=== PATIENT | female | born 1970 | race Caucasian/White ===

== ENCOUNTER 2017-03-18 18:07 | Emergency (ER) | payer OTHER ==
[2017-03-18 18:15] VITALS: BP 153/87; PULSE 113; TEMP 100.5; BMI 37.1
--- NOTE | 2017-03-18 19:54 | PDOC ---
History of Present Illness - General History Source: Patient Exam Limitations: No Limitations - History of Present Illness Initial Comments: 03/18/17 20:12 The patient is a 46 year old female with a significant past medical history of anxiety/depression, insomnia, who presents to the ED with dysuria and fevers. Patient states the dysuria began this morning and she is experiencing generalized body aches while urinating. Patient denies hematuria, urgency, flank pain. Patient denies chills, nausea, vomiting, diarrhea. Patient states she has been under depression lately. She explains that she does not shower and change her clothes during her depressive episodes. <Jagdish Duran - Last Filed: 03/18/17 20:12> <Gavi Summers - Last Filed: 03/19/17 00:40> - General Chief Complaint: Pain Stated Complaint: PAIN Time Seen by Provider: 03/18/17 19:32 Past History <Jagdish Duran - Last Filed: 03/18/17 20:12> - Past Medical History Psychiatric Problems: Yes (ANXIETY, PANIC, DEPRESSION, INSOMNIA) Other medical history: ARTHRITIS - Suicide/Smoking/Psychosocial Hx Smoking History: Current every day smoker Number of Cigarettes Smoked Daily: 7 Information on smoking cessation initiated: Yes 'Breaking Loose' booklet given: 03/18/17 Hx Alcohol Use: Yes (SOCIAL) Drug/Substance Use Hx: No Substance Use Type: None <Gavi Summers - Last Filed: 03/19/17 00:40> - Past Medical History Allergies/Adverse Reactions: Allergies Allergy/AdvReac Type Severity Reaction Status Date / Time No Known Allergies Allergy Verified 03/18/17 18:15 Home Medications: Ambulatory Orders Aripiprazole [Abilify] 10 mg PO HS 03/18/17 Aripiprazole [Abilify] 20 mg PO DAILY 03/18/17 Clonazepam [Klonopin] 1 mg PO HS PRN 03/18/17 Ibuprofen [Motrin -] 400 mg PO QID PRN 03/18/17 Sodium Chloride [Sodium Chloride 0.9% 1000 ml Infus.bag] 1,000 ml IV ONCE #1000 infus.bag 03/18/17 Sulfamethoxazole/Trimethoprim [Bactrim Ds -] 1 tab PO BID #14 tablet 03/18/17 Venlafaxine HCl [Effexor -] 35 mg PO DAILY 03/18/17 Zolpidem Tartrate [Ambien] 10 mg PO HS 03/18/17 Review of Systems - Review of Systems Able to Perform ROS?: Yes Comments:: 03/18/17 20:13 GENERAL/CONSTITUTIONAL: + fever. + generalized body aches. No chills. No weakness. HEAD, EYES, EARS, NOSE AND THROAT: No change in vision. No ear pain or discharge. No sore throat. CARDIOVASCULAR: No chest pain or shortness of breath. RESPIRATORY: No cough, wheezing, or hemoptysis. GASTROINTESTINAL: No nausea, vomiting, diarrhea or constipation. GENITOURINARY: + dysuria. + cloudy urine. No frequency. MUSCULOSKELETAL: No joint or muscle swelling or pain. No neck or back pain. SKIN: No rash NEUROLOGIC: No headache, vertigo, loss of consciousness, or change in strength/ sensation. ENDOCRINE: No increased thirst. No abnormal weight change. HEMATOLOGIC/LYMPHATIC: No anemia, easy bleeding, or history of blood clots. ALLERGIC/IMMUNOLOGIC: No hives or skin allergy. <Jagdish Duran - Last Filed: 03/18/17 20:12> *Physical Exam - Vital Signs Last Vital Signs Temp Pulse Resp BP Pulse Ox 100.5 F H 113 H 20 153/87 99 03/18/17 18:10 03/18/17 18:10 03/18/17 18:10 03/18/17 18:10 03/18/17 19:20 - Physical Exam Comments: 03/18/17 20:14 GENERAL: Awake, alert, and fully oriented, in no acute distress HEAD: No signs of trauma EYES: PERRLA, EOMI, sclera anicteric, conjunctiva clear ENT: Auricles normal inspection, hearing grossly normal, nares patent, oropharynx clear without exudates. Moist mucosa NECK: Normal ROM, supple, no lymphadenopathy, JVD, or masses LUNGS: Breath sounds equal, clear to auscultation bilaterally. No wheezes, and no crackles HEART: Regular rate and rhythm, normal S1 and S2, no murmurs, rubs or gallops ABDOMEN: Soft, nontender, normoactive bowel sounds. No guarding, no rebound. No masses EXTREMITIES: Normal range of motion, no edema. No clubbing or cyanosis. No cords, erythema, or tenderness NEUROLOGICAL: Cranial nerves II through XII grossly intact. Normal speech, normal gait SKIN: Warm, Dry, normal turgor, no rashes or lesions noted. <Jagdish Duran - Last Filed: 03/18/17 20:12> - Vital Signs Last Vital Signs Temp Pulse Resp BP Pulse Ox 100.5 F H 113 H 20 153/87 99 03/18/17 18:10 03/18/17 18:10 03/18/17 18:10 03/18/17 18:10 03/18/17 19:20 <Gavi Summers - Last Filed: 03/19/17 00:40> ED Treatment Course - ADDITIONAL ORDERS Additional order review: Laboratory Results 03/18/17 19:50 Urine Color Yellow Urine Appearance Cloudy Urine pH 6.0 Urine Protein 2+ H Urine Glucose (UA) Negative Urine Ketones Negative Urine Blood 3+ H Urine Nitrite Negative Urine Bilirubin Negative Urine Urobilinogen Negative - Medications Given in the ED: ED Medications Discontinued Medications Generic Name Dose Route Start Last Admin Trade Name Agnes PRN Reason Stop Dose Admin Acetaminophen 1,000 mg 03/18/17 20:08 03/18/17 20:10 Tylenol - PO 03/18/17 20:09 1,000 mg ONCE ONE Administration <Jagdish Duran - Last Filed: 03/18/17 20:12> - LABORATORY CBC & Chemistry Diagram: 03/18/17 20:00 03/18/17 22:00 <Gavi Summers - Last Filed: 03/19/17 00:40> Medical Decision Making - Medical Decision Making 03/18/17 21:04 Pt comes with dysuria and fever and states that she has had poor hygeine recently as she was depressed and likely gave herself a UTI. UA is cloudy. Exam pt has minimal suprapubic pain and no flank pain. Abd nt nd; no rebound and no guarding. LMP last monnth. Pt has no other complaints,. 03/19/17 00:39 Labs normal. Pt has a UTI and a cystitis. She will be sent home with bactrim DS BID and she will be given a dose in the ER, Pt also received a dose of ceftriaxone IV in the ER. She was hydrated and she is feeling better. She will go home with family. <Gavi Summers - Last Filed: 03/19/17 00:40> *DC/Admit/Observation/Transfer - Attestations Scribe Attestion: 03/18/17 20:14 Documentation prepared by Jagdish Duran, acting as registered medical transcriptionist for Gavi Summers MD/. <Jagdish Duran - Last Filed: 03/18/17 20:12> - Discharge Dispostion Admit: No <Gavi Summers - Last Filed: 03/19/17 00:40> Diagnosis at time of Disposition: UTI (urinary tract infection), Cystitis - Discharge Dispostion Disposition: HOME Condition at time of disposition: Improved - Prescriptions Prescriptions: Sulfamethoxazole/Trimethoprim [Bactrim Ds -] 1 tab PO BID #14 tablet Sodium Chloride [Sodium Chloride 0.9% 1000 ml Infus.bag] 1,000 ml IV ONCE #1000 infus.bag - Patient Instructions Printed Discharge Instructions: DI for Acute Cystitis
[2017-03-18 20:02] LABS: URINE APPEARANCE CLOUDY; URINE BILIRUBIN NEGATIVE (NEGATIVE); URINE BLOOD 3+ (NEGATIVE); URINE COLOR YELLOW; URINE GLUCOSE (UA) NEGATIVE (NEGATIVE); URINE KETONE NEGATIVE (NEGATIVE); URINE NITRITE NEGATIVE (NEGATIVE); URINE UROBILINOGEN NEGATIVE mg/dL (0.2-1.0)
[2017-03-18 20:08] LABS: URINE LEUK ESTERASE 3+ (NEGATIVE); URINE PROTEIN 2+ (NEGATIVE)
[2017-03-18] MEDS ORDERED: ACETAMINOPHEN 500 MG TABLET (FP) PO ONE (20:08)
[2017-03-18 20:09] LABS: URINE BACTERIA RARE /hpf (NONE SEEN); URINE MUCUS RARE; URINE RBC 410 /hpf (0-3); URINE WBC 887 /hpf (3-5); YEAST MANY
[2017-03-18] MEDS ORDERED: CEFTRIAXONE 1,000 MG in DEXTROSE 5%-WATER - 50 ML IVPB ONE (20:09)
[2017-03-18] MEDS ORDERED: ACETAMINOPHEN 325 MG TABLET (FP) ONE (20:13)
[2017-03-18] MEDS ORDERED: CEFTRIAXONE 50 ML ONE (20:14)
[2017-03-18 20:35] LABS: MCH 30.3 pg (25.7-33.7); MEAN PLT VOLUME 7.2 fl (7.5-11.1); PLATELET COUNT 285 K/MM3 (134-434); RDW 14.1 % (11.6-15.6); WHITE BLOOD COUNT 20.3 K/mm3 (4.0-10.0)
[2017-03-18] MEDS ORDERED: SODIUM CHLORIDE 0.9% 500 ML INFUS.BAG IV ONE (21:07)
[2017-03-18 21:21] LABS: PLATELET COMMENT2 NO CLOTTING DETECTED; PLATELET ESTIMATE ADEQUATE (NORMAL); TOTAL CELLS COUNTED 100
[2017-03-18] MEDS ORDERED: SULFAMETHOXAZOLE/TRIMETHOPRIM 800MG/160MG D.S. TABLET PO ONE (22:16)
[2017-03-18] MEDS ORDERED: SULFAMETHOXAZOLE/TRIMETHOPRIM 800MG/160MG D.S. TABLET ONE ×2 (22:27→23:22)
[2017-03-18 22:40] LABS: ALBUMIN 3.3 g/dl (3.4-5.0); ALK PHOS 82 U/L (45-117); ANION GAP 6 (8-16); BILIRUBIN,TOTAL 0.3 mg/dL (0.2-1.0); CALCIUM 8.4 mg/dL (8.5-10.1); CO2 25 mmol/L (21-32); CREATININE 0.6 mg/dL (0.55-1.02); GLUCOSE,RANDOM 106 mg/dL (74-106); SGOT/AST 18 U/L (15-37); SGPT/ALT 26 U/L (12-78); TOT PROT 6.5 g/dl (6.4-8.2)
== END 2017-03-18 23:08 | disposition home or self-care (01) ==
LOC: JER 18:07
DX: N30.00 Acute cystitis without hematuria (principal); F41.9 Anxiety disorder, unspecified; G47.00 Insomnia, unspecified
CPT/HCPCS: 36415; 80048; 80053; 81003; 81015; 84703; 85025; 87086; 87186; 96365; 99283-25

== ENCOUNTER 2019-08-15 21:17 | Inpatient (IN) | payer OTHER ==
--- NOTE | 2019-08-15 21:30 | PDOC ---
Rapid Medical Evaluation Time Seen by Provider: 08/15/19 21:28 Medical Evaluation: Allergies Allergy/AdvReac Type Severity Reaction Status Date / Time No Known Allergies Allergy Verified 10/03/17 19:22 08/15/19 21:28 CC: right eye throbbing PE: yellow crusted discharge with sclera erythema Orders: nothing Patient will proceed to ED for continued evaluation. Discharge Disposition - Diagnosis Pain, eye, right - Referrals - Patient Instructions - Post Discharge Activity
--- NOTE | 2019-08-15 22:05 | PDOC ---
History of Present Illness - General Chief Complaint: Altered Mental Status Stated Complaint: RT EYE PAIN Time Seen by Provider: 08/15/19 21:28 - History of Present Illness Initial Comments: The pt is a 49F w/ a history of depression, bipolar disorder who presents for evaluation of right eye redness and discharge. She has had the eye redness and discharge for 2 days. She has not had this happen before. Denies vision changes , painful eye movements, JAIME, or fevers. Pt presents with her sister who expresses concern because the sister has had several days of pressured speech and erratic behavior. The pt endorses feeling confused, endorses taking her medications as prescribed , and denies SI/HI. 08/15/19 22:41 Past History - Past Medical History Allergies/Adverse Reactions: Allergies Allergy/AdvReac Type Severity Reaction Status Date / Time No Known Allergies Allergy Verified 08/15/19 21:33 Home Medications: Ambulatory Orders Aripiprazole [Abilify] 10 mg PO HS 03/18/17 Clonazepam [Klonopin] 1 mg PO HS PRN 03/18/17 COPD: No Psychiatric Problems: Yes (DEPRESSION) - Psycho Social/Smoking Cessation Hx Smoking History: Never smoked Have you smoked in the past 12 months: No Number of Cigarettes Smoked Daily: 7 If you are a former smoker, when did you quit?: 2 wks ago 'Breaking Loose' booklet given: 03/18/17 Hx Alcohol Use: No Drug/Substance Use Hx: No Substance Use Type: None Review of Systems - Review of Systems Able to Perform ROS?: Yes Comments:: GENERAL/CONSTITUTIONAL: No fever or chills. No weakness HEAD, EYES, EARS, NOSE AND THROAT: +Eye redness and discharge. No change in vision. No change in hearing. No sore throat CARDIOVASCULAR: No chest pain or shortness of breath RESPIRATORY: Denies cough, hemoptysis GASTROINTESTINAL: No nausea, vomiting, diarrhea or constipation GENITOURINARY: No dysuria, frequency, or change in urination MUSCULOSKELETAL: No joint or muscle swelling or pain. No neck or back pain SKIN: No rash NEUROLOGIC: No headache, vertigo, loss of consciousness, or change in strength/ sensation ENDOCRINE: No increased thirst. No abnormal weight change HEMATOLOGIC/LYMPHATIC: No anemia, easy bleeding, or history of blood clots ALLERGIC/IMMUNOLOGIC: No hives or skin allergy 08/15/19 22:48 Is the patient limited Pashto proficient: No *Physical Exam - Vital Signs Last Vital Signs Temp Pulse Resp BP Pulse Ox 97.9 F 114 H 18 134/93 97 08/15/19 21:28 08/15/19 21:28 08/15/19 21:28 08/15/19 21:28 08/15/19 21:28 - Physical Exam GENERAL: Awake, alert, and oriented to person/place/time, in no acute distress HEAD: No signs of trauma, normocephalic, atraumatic EYES: PERRLA, EOMI, no proptosis R conjuctivitis with purulent discharge, L eye without conjuctivitis/discharge ENT: Hearing grossly normal, nares patent, oropharynx clear without exudates. No uvular deviation. Moist mucosa LUNGS: No distress, speaks in full sentences, clear to auscultation bilaterally HEART: Regular rate and rhythm, normal S1 and S2, no murmurs appreciated, peripheral pulses normal and equal bilaterally ABDOMEN: Soft, nontender, normoactive bowel sounds. No guarding, no rebound EXTREMITIES: Normal inspection, Normal range of motion, no edema. No clubbing or cyanosis NEUROLOGICAL: Cranial nerves II through XII grossly intact. No focal sensorimotor deficits SKIN: Warm, Dry PSYCH: Pressured speech, tangential speech, flight of ideas, denies SI/HI 08/15/19 22:49 ED Treatment Course - LABORATORY CBC & Chemistry Diagram: 08/15/19 23:00 08/15/19 23:00 Medical Decision Making - Medical Decision Making The pt is a 49F w/ a history of depression, bipolar disorder who presents for evaluation of right eye redness/discharge. Pt is also with her sister who states pt is not at her baseline behavior. ED Course CMP, CBC, TSH, Trop I, UDS, UA ECG CT head Haldol 5mg IM once Ceftriaxone 1g IV once Polytrim ophthalmic solution OD once Will reassess 08/15/19 22:51 ECG w/ sinus tach; HR 111; QTc 486; no axis deviation; STD in V5-V6; no VERNON Leukocytosis noted Pt initially tachycardic Will give Azithro/Vanc Trop I neg Lytes unremarkable No MARY KATE LFTs wnl CXR w/o PNA, PNX, effusion. ED staff read Pending UA, abx Plan for admission for sepsis likely 2/2 cellulitis. Pt unable to take meds at home/lives alone. 08/16/19 01:52 CT head w/o acute pathology Pt signed out to Dr. Jakcman 08/16/19 02:00 Discharge - Discharge Information Problems reviewed: Yes Clinical Impression/Diagnosis: Pain, eye, right Condition: Good - Admission Yes - Follow up/Referral Referrals: Hammad Banks MD [Primary Care Provider] - - Patient Discharge Instructions - Post Discharge Activity
[2019-08-15] MEDS ORDERED: THIAMINE HCL 100 MG TABLET (FP) ONE (22:13)
[2019-08-15] MEDS ORDERED: FOLIC ACID 1 MG TABLET (FP) ONE (22:13)
[2019-08-15] MEDS ORDERED: HALOPERIDOL LACTATE 5 MG/ML IM ONE (22:25)
[2019-08-15] MEDS ORDERED: CEFTRIAXONE 1,000 MG in DEXTROSE 5%-WATER - 50 ML IVPB ONE (22:29)
[2019-08-15] MEDS ORDERED: CEFTRIAXONE 1 GM/50 ML BAG ONE (22:41)
[2019-08-15] MEDS ORDERED: HALOPERIDOL LACTATE 5 MG/ML ONE (22:41)
[2019-08-15] MEDS ORDERED: POLYMYXIN B SULFATE/TMP 10 ML OPHTHALMIC SOLUTION OD ONE (23:00)
[2019-08-15 23:08] LABS: BASO % 0.5 % (0-2.0); EOS % 0.8 % (0-4.5); HEMATOCRIT 41.1 % (32.4-45.2); HEMOGLOBIN 13.5 GM/dL (10.7-15.3); LYMPH % 15.3 % (8-40); MCH 28.4 pg (25.7-33.7); MCHC 32.8 g/dl (32.0-36.0); MEAN CELL VOLUME 86.7 fl (80-96); MONO % 7.8 % (3.8-10.2); NEUT % 75.6 % (42.8-82.8); PLATELET COUNT 430 K/MM3 (134-434); RBC 4.74 M/mm3 (3.60-5.2)
[2019-08-15] MEDS ORDERED: SODIUM CHLORIDE 0.9% 500 ML INFUS.BAG IV ONE (23:28)
[2019-08-15 23:41] LABS: BILIRUBIN,TOTAL 0.5 mg/dL (0.2-1); BLOOD UREA NITROGEN 11.5 mg/dL (7-18); CALCIUM 9.3 mg/dL (8.5-10.1); CREATININE 0.8 mg/dL (0.55-1.3); POTASSIUM 3.7 mmol/L (3.5-5.1); TOT PROT 7.6 g/dl (6.4-8.2)
[2019-08-16] MEDS ORDERED: AZITHROMYCIN IVPB 500 MG in DEXTROSE 5%-WATER - 250 ML IVPB ONE (01:12)
[2019-08-16] MEDS ORDERED: VANCOMYCIN 1 GM in D5W (PRE-DOCKED) 1,000 MG/250 ML IVPB ONE (01:12)
[2019-08-16] MEDS ORDERED: VANCOMYCIN 1 GRAM (PRE-DOCKED) 1,000 MG/250 ML BAG IVPB ONE (01:57)
[2019-08-16] MEDS ORDERED: AZITHROMYCIN IVPB 500 MG/250 ML BAG IVPB ONE (02:00)
--- NOTE | 2019-08-16 02:16 | PDOC ---
*Physical Exam - Vital Signs Last Vital Signs Temp Pulse Resp BP Pulse Ox 97.9 F 114 H 18 134/93 97 08/15/19 21:28 08/15/19 21:28 08/15/19 21:28 08/15/19 21:28 08/15/19 21:28 ED Treatment Course - LABORATORY CBC & Chemistry Diagram: 08/15/19 23:00 08/15/19 23:00 - ADDITIONAL ORDERS Additional order review: Laboratory Results 08/15/19 08/15/19 08/15/19 23:00 23:00 23:00 Sodium 138 Potassium 3.7 Chloride 105 Carbon Dioxide 28 Anion Gap 5 L BUN 11.5 Creatinine 0.8 Est GFR (CKD-EPI)AfAm 98.93 Est GFR (CKD-EPI)NonAf 85.36 Random Glucose 115 H Calcium 9.3 Total Bilirubin 0.5 AST 24 ALT 29 Alkaline Phosphatase 92 Troponin I < 0.02 Total Protein 7.6 Albumin 4.0 TSH 1.47 Cancelled 08/15/19 23:00 RBC 4.74 MCV 86.7 MCHC 32.8 RDW 15.0 MPV 7.0 L Neutrophils % 75.6 Lymphocytes % 15.3 D Monocytes % 7.8 Eosinophils % 0.8 Basophils % 0.5 - Medications Given in the ED: ED Medications Discontinued Medications Generic Name Dose Route Start Last Admin Trade Name Agnes PRN Reason Stop Dose Admin Haloperidol 5 mg 08/15/19 22:25 08/15/19 23:02 Haldol Injection (Fast Acting) - IM 08/15/19 22:26 5 mg ONCE ONE Administration Ceftriaxone Sodium 1,000 mg/ 50 mls @ 100 mls/hr 08/15/19 22:29 08/15/19 23: 02 Dextrose IVPB 08/15/19 22:58 100 mls/hr ONCE ONE Administration Polymyxin/Trimethoprim Sulfate 1 drop 08/15/19 23:00 08/15/19 23:21 Polytrim Opthalmic Solution - OD 08/15/19 23:01 1 drop ONCE ONE Administration Sodium Chloride 1,000 ml 08/15/19 23:28 08/15/19 23:51 Normal Saline - IV 08/15/19 23:29 1,000 ml ONCE ONE Administration Medical Decision Making - Medical Decision Making 08/16/19 02:15 ECG w/ sinus tach; HR 111; QTc 486; no axis deviation; STD in V5-V6; no VERNON CXR w/o PNA, PNX, effusion WBC 16 --- Signed out from day team The pt is a 49F w/ a history of depression, bipolar disorder who presents for evaluation of 2d right eye redness/discharge, pressured speech, erratic behavior No acute bleed/infarct on head CT. Normal TSH, glucose Given 5 haldol, 1g rocephin, Polytrim ophthalmic solution OD, thiamine, vanc, zosyn Admitted m/s Dr Nguyen for encephalopathy vs manic episode 2/2 R bacterial conjunctivitis, R preseptal cellulitis Discharge - Discharge Information Problems reviewed: Yes Clinical Impression/Diagnosis: Conjunctivitis Qualifiers: Conjunctivitis type: acute Acute conjunctivitis type: bacterial Laterality: right Qualified Code(s): H10.31 - Unspecified acute conjunctivitis, right eye Cellulitis Qualifiers: Site of cellulitis: face Qualified Code(s): L03.211 - Cellulitis of face Altered mental state Qualifiers: Altered mental status type: delirium Qualified Code(s): R41.0 - Disorientation , unspecified Condition: Improved - Follow up/Referral Referrals: Hammad Banks MD [Primary Care Provider] - - Patient Discharge Instructions - Post Discharge Activity
[2019-08-16 02:23] LABS: VENOUS PC02 52.3 mmHg (38-52); VENOUS PH 7.37 (7.31-7.41); VENOUS PO2 < 49 mmHg (28-48)
[2019-08-16 05:10] LABS: PH,URINE 6.5 (5.0-8.0); URINE APPEARANCE CLOUDY; URINE BILIRUBIN NEGATIVE (NEGATIVE); URINE COLOR YELLOW; URINE GLUCOSE (UA) NEGATIVE (NEGATIVE); URINE KETONE NEGATIVE (NEGATIVE); URINE LEUK ESTERASE NEGATIVE (NEGATIVE); URINE NITRITE NEGATIVE (NEGATIVE); URINE PROTEIN NEGATIVE (NEGATIVE)
--- NOTE | 2019-08-16 05:26 | HP ---
CHIEF COMPLAINT: right eye infection PCP: Dr. Banks Psychiatry: Dr. Edward Mcclellan HISTORY OF PRESENT ILLNESS: Patient is a 49 year old female with history of depression, anxiety presents with complaint of right eye pain. Symptoms ongoing for the past two days without clear inciting event. Admits eye erythema and swelling with throbbing pain. Denies visual changes, or pain with extraoccular movements. Denies trauma , sick contacts. Denies prior occurrence of similar symptoms. Patient has not taken any antibiotics recently. Per ED notation, patient was tangential, with flight of ideas. Reported that patient's sister concerned for 'erratic behavior'. Numerous attempts to contact sister (Kellee Hernandez [phone])) however unsuccessful. Upon my encounter, patient is calm, resting comfortably. Denies suicidal or homicidal ideation. Admits compliance with her psychiatric medications. ER course was notable for: (1) CT head (2) Polymyxin Drops, Vancomycin, Ceftriaxone, Azithromycin (3) Recent Travel: denies PAST MEDICAL HISTORY: anxiety, depression PAST SURGICAL HISTORY: cosmetic nose surgery 20 years ago Family History: -Mother: CVA, hypertension, hyperlipidemia -Father: asthma Social History: Lives alone in apartment. Currently on disability due to her psychiatric history. Patient ambulates without cane or walker. Smoking: Admits 1 pack per day for past 30 years. Currently down to 5-6 cigarettes/ day Alcohol: Admits 1-2 glasses of wine on social occasion. Denies any alcohol since this past summer. Drugs: Denies illicit drug use. Allergies No Known Allergies Allergy (Verified 08/15/19 21:33) HOME MEDICATIONS: Home Medications Medication Instructions Recorded Aripiprazole [Abilify] 10 mg PO HS 03/18/17 Clonazepam [Klonopin] 1 mg PO HS PRN 03/18/17 REVIEW OF SYSTEMS CONSTITUTIONAL: Absent: fever, chills, diaphoresis, generalized weakness, malaise, loss of appetite, weight change HEENT: Admits: eye redness, swelling, purulent drainage. Absent: rhinorrhea, nasal congestion, throat pain, throat swelling, difficulty swallowing, mouth swelling , ear pain, visual changes CARDIOVASCULAR: Absent: chest pain, syncope, palpitations, irregular heart rate, lightheadedness , peripheral edema RESPIRATORY: Absent: cough, shortness of breath, dyspnea with exertion, orthopnea, wheezing, stridor, hemoptysis GASTROINTESTINAL: Absent: abdominal pain, abdominal distension, nausea, vomiting, diarrhea, constipation, melena, hematochezia GENITOURINARY: Absent: dysuria, frequency, urgency, hesitancy, hematuria, flank pain, genital pain MUSCULOSKELETAL: Absent: myalgia, arthralgia, joint swelling, back pain, neck pain SKIN: Absent: rash, itching, pallor HEMATOLOGIC/IMMUNOLOGIC: Absent: easy bleeding, easy bruising, lymphadenopathy, frequent infections ENDOCRINE: Absent: unexplained weight gain, unexplained weight loss, heat intolerance, cold intolerance NEUROLOGIC: Absent: headache, focal weakness or paresthesias, dizziness, unsteady gait, seizure, mental status changes, bladder or bowel incontinence PSYCHIATRIC: Absent: anxiety, depression, suicidal or homicidal ideation, hallucinations. PHYSICAL EXAMINATION Vital Signs - 24 hr 08/15/19 21:28 Temperature 97.9 F Pulse Rate 114 H Respiratory 18 Rate Blood Pressure 134/93 O2 Sat by Pulse 97 Oximetry (%) GENERAL: Disheveled. The patient is awake, alert, and fully oriented, in no acute distress. HEAD: Normocephalic, atraumatic. EYES: Right eye conjunctiva injected, with purulent discharge. Extraocular movements intact bilaterally without orbital pain. PERRL (right eye slightly more sluggish than left). ENT: Oropharynx clear, without erythema or exudates. Moist mucous membranes. NECK: Trachea midline, full range of motion. Supple without lymphadenopathy. LUNGS: Breath sounds equal, clear to auscultation bilaterally. No wheezes, no crackles. No accessory muscle use. HEART: Regular rate and rhythm. S1, S2 without murmur, rub or gallop. ABDOMEN: Soft, nondistended, nontender to light and deep palpation x4 quadrants. No rebound tenderness, no guarding. Normoactive bowel sounds x4 quadrants. No hepatosplenomegaly, no masses appreciated. EXTREMITIES: 2+ radial, dorsalis pedis pulses bilaterally. Warm, well-perfused. No lower extremity edema bilaterally. NEUROLOGICAL: Cranial nerves II through XII grossly intact. Normal speech. Strength 5/5 bilateral upper and lower extremities. No gross focal deficits. PSYCH: Appropriate affect upon my encounter. SKIN: Dirty lower extremities bilaterally with dirt between nails bilaterally. Laboratory Results - last 24 hr 08/15/19 08/15/19 08/15/19 23:00 23:00 23:00 WBC 16.0 H RBC 4.74 Hgb 13.5 Hct 41.1 MCV 86.7 MCH 28.4 MCHC 32.8 RDW 15.0 Plt Count 430 D MPV 7.0 L Absolute Neuts (auto) 12.1 H Neutrophils % 75.6 Lymphocytes % 15.3 D Monocytes % 7.8 Eosinophils % 0.8 Basophils % 0.5 Nucleated RBC % 0 VBG pH POC VBG pCO2 POC VBG pO2 VBG HCO3 VBG O2 Sat (Maurizio) VBG Base Excess Sodium 138 Potassium 3.7 Chloride 105 Carbon Dioxide 28 Anion Gap 5 L BUN 11.5 Creatinine 0.8 Est GFR (CKD-EPI)AfAm 98.93 Est GFR (CKD-EPI)NonAf 85.36 Random Glucose 115 H Lactic Acid Calcium 9.3 Total Bilirubin 0.5 AST 24 ALT 29 Alkaline Phosphatase 92 Troponin I Total Protein 7.6 Albumin 4.0 TSH Cancelled Urine Color Urine Appearance Urine pH Ur Specific Harrison Urine Protein Urine Glucose (UA) Urine Ketones Urine Blood Urine Nitrite Urine Bilirubin Urine Urobilinogen Ur Leukocyte Esterase Digoxin 08/15/19 08/16/19 08/16/19 23:00 01:43 01:43 WBC RBC Hgb Hct MCV MCH MCHC RDW Plt Count MPV Absolute Neuts (auto) Neutrophils % Lymphocytes % Monocytes % Eosinophils % Basophils % Nucleated RBC % VBG pH POC VBG pCO2 POC VBG pO2 VBG HCO3 VBG O2 Sat (Maurizio) VBG Base Excess Sodium Potassium Chloride Carbon Dioxide Anion Gap BUN Creatinine Est GFR (CKD-EPI)AfAm Est GFR (CKD-EPI)NonAf Random Glucose Lactic Acid 0.9 Calcium Total Bilirubin AST ALT Alkaline Phosphatase Troponin I < 0.02 Total Protein Albumin TSH 1.47 Urine Color Urine Appearance Urine pH Ur Specific Harrison Urine Protein Urine Glucose (UA) Urine Ketones Urine Blood Urine Nitrite Urine Bilirubin Urine Urobilinogen Ur Leukocyte Esterase Digoxin < 0.3 L 08/16/19 08/16/19 01:43 04:15 WBC RBC Hgb Hct MCV MCH MCHC RDW Plt Count MPV Absolute Neuts (auto) Neutrophils % Lymphocytes % Monocytes % Eosinophils % Basophils % Nucleated RBC % VBG pH 7.37 POC VBG pCO2 52.3 H POC VBG pO2 < 49 H VBG HCO3 29.2 H VBG O2 Sat (Maurizio) 33.6 L VBG Base Excess 3.3 H Sodium Potassium Chloride Carbon Dioxide Anion Gap BUN Creatinine Est GFR (CKD-EPI)AfAm Est GFR (CKD-EPI)NonAf Random Glucose Lactic Acid Calcium Total Bilirubin AST ALT Alkaline Phosphatase Troponin I Total Protein Albumin TSH Urine Color Yellow Urine Appearance Cloudy Urine pH 6.5 Ur Specific Harrison 1.009 L Urine Protein Negative Urine Glucose (UA) Negative Urine Ketones Negative Urine Blood Negative Urine Nitrite Negative Urine Bilirubin Negative Urine Urobilinogen 1.0 Ur Leukocyte Esterase Negative Digoxin ASSESSMENT/PLAN: Patient is a 49 year old female with history of depression, anxiety presents with complaint of right eye pain. Sepsis secondary to conjunctivitis of right eye, cellulitis of eyelid -WBC 16, tachycardic to 114BPM. Afebrile. Lactic acid 0.9 -Follow CT head official reading. Preliminary reading negative for acute pathology. -Polymyxin eye drops -Unasyn 3 grams IV Q6 hours -Follow blood cultures, urine cultures. UA not suggestive of UTI Acute metabolic encephalopathy -May be in setting of sepsis vs. manic episode. Urine toxicology positive for amphetamines. However iSTOP reveals patient has been prescribed Desxtromethorphan- Amphetamine by her psychiatrist Dr. Edward Campbell, in addition to Clonazepam 0.5mg tablets prescribed by Dr Mahmood. Amphetamines likely contributing factor to change in mental status; will need to clarify the medication with her psychiatrist. Will hold amphetamines for now. -Continue Effexor 75mg PO BID (reconciled from prior DC summary; currently her pharmacy is closed) -Psychiatry consult (Dr. Chu) -Fall precations, seizure precautions -Follow RPR -Social work consult FEN -No IV fluids indicated; encourage judicious oral hydration -Follow BMP -Regular diet Prophylaxis -Lovenox 40mg subq daily Disposition -Admit to medical surgical floor Visit type - Emergency Visit Emergency Visit: Yes ED Registration Date: 08/16/19 Care time: The patient presented to the Emergency Department on the above date and was hospitalized for further evaluation of their emergent condition. - New Patient This patient is new to me today: Yes Date on this admission: 08/16/19 - Critical Care Critical Care patient: No ATTENDING PHYSICIAN STATEMENT I saw and evaluated the patient. I reviewed the resident's note and discussed the case with the resident. I agree with the resident's findings and plan as documented. SUBJECTIVE: OBJECTIVE: ASSESSMENT AND PLAN:
[2019-08-16 05:44] LABS: COCAINE, UR NEGATIVE ng/ml (CUTOFF=300); METHADONE, UR NEGATIVE ng/ml (CUTOFF=300); OPIATES, URI NEGATIVE ng/ml (CUTOFF=300); PHENCYCLIDINE,URINE NEGATIVE ng/ml (CUTOFF=25); URINE BARBITURATES NEGATIVE ng/ml (CUTOFF=200)
[2019-08-16 05:46] LABS: URINE AMPHETAMINES POSITIVE ng/ml (CUTOFF=500)
[2019-08-16 05:47] LABS: URINE BENZODIAZEPINES POSITIVE ng/ml (CUTOFF=200)
--- NOTE | 2019-08-16 06:16 | PN ---
Teaching Attending Note Name of Resident: Jose Raul Mohamud ATTENDING PHYSICIAN STATEMENT I saw and evaluated the patient. I reviewed the resident's note and discussed the case with the resident. I agree with the resident's findings and plan as documented. SUBJECTIVE: 49-year-old woman with history of depression, bipolar disorder, insomnia, anxiety initially presenting with altered mental status, erratic behavior, right eye discharge and right eyelid swelling. Noted to be receiving dextroamphetamine from her psychiatristDrCristopher Mcclellan as per I stop. She was also noted to be on clonazepam as per her old medication list. Eye swelling started about 2 days ago, noted to have some discharge with decreased visual acuity reported. OBJECTIVE: Last Vital Signs Temp Pulse Resp BP Pulse Ox 97.9 F 114 H 18 134/93 97 08/15/19 21:28 08/15/19 21:28 08/15/19 21:28 08/15/19 21:28 08/15/19 21:28 Physical exam showed disheveled woman in no acute distress, right eyelid erythematous, swollen conjunctival w/ discharge. PERRLA bilaterally no signs of trauma to head. Lungs clear to auscultation bilaterally, normal heart exam, abdomen soft, nontender skin with no rashes Abnormal Lab Results 08/15/19 08/15/19 08/16/19 23:00 23:00 01:43 WBC 16.0 H MPV 7.0 L Absolute Neuts (auto) 12.1 H POC VBG pCO2 POC VBG pO2 VBG HCO3 VBG O2 Sat (Maurizio) VBG Base Excess Anion Gap 5 L Random Glucose 115 H Ur Specific [place] Digoxin < 0.3 L Ur Amphetamines Screen Benzodiazepines Screen 08/16/19 08/16/19 08/16/19 01:43 04:15 04:15 WBC MPV Absolute Neuts (auto) POC VBG pCO2 52.3 H POC VBG pO2 < 49 H VBG HCO3 29.2 H VBG O2 Sat (Maurizio) 33.6 L VBG Base Excess 3.3 H Anion Gap Random Glucose Ur Specific [place] 1.009 L Digoxin Ur Amphetamines Screen Positive A* Benzodiazepines Screen Positive A* Imaging studies reviewed ASSESSMENT AND PLAN: 49-year-old woman with sepsis possibly secondary to right bacterial conjunctivitis and periorbital cellulitis Blood cultures x2 Polymyxin eyedrops to right eye Unasyn 3 g IV every 6 hours #Psychiatric disorderunderlying bipolar disorder, depression was suspected to have manic episode in the emergency room may be bipolar disorder and exacerbated by amphetamine use Would cease psychotropic medications at this time Psychiatry evaluation Must confirm most up-to-date medications with pharmacy in the morning DVT prophylaxis with heparin subcutaneously
--- NOTE | 2019-08-16 11:02 | EKG ---
Test Reason : Blood Pressure : / mmHG Vent. Rate : 111 BPM Atrial Rate : 111 BPM P-R Int : 132 ms QRS Dur : 078 ms QT Int : 358 ms P-R-T Axes : 047 053 -28 degrees QTc Int : 486 ms SINUS TACHYCARDIA POSSIBLE LEFT ATRIAL ENLARGEMENT LEFT VENTRICULAR HYPERTROPHY WITH REPOLARIZATION ABNORMALITY ABNORMAL ECG Confirmed by JIGAR COHEN MD ([id number]) on 08/16/2019 11:02:32 AM Referred By: Confirmed By:JIGAR COHEN MD
[2019-08-16] MEDS: POLYMYXIN B SULFATE/TMP 10 ML OPHTHALMIC SOLUTION OD SCH ×5 (11:35→21:54)
[2019-08-16] MEDS ORDERED: MAGNESIUM SULF 50% (8.12 MEQ/2 ML-1 GM VIAL) IVPB ONE (12:18)
[2019-08-16] MEDS: VENLAFAXINE HCL 75 MG TABLET PO SCH ×2 (12:30→21:54)
[2019-08-16] MEDS: ENOXAPARIN NA (PORCINE) 40 MG/0.4 ML DISP.SYRIN SQ SCH (12:30)
[2019-08-16] MEDS ORDERED: SODIUM CHLORIDE 0.9% 500 ML INFUS.BAG IV ONE (13:21)
[2019-08-16 13:45] LABS: HEMATOCRIT 37.4 % (32.4-45.2); HEMOGLOBIN 12.5 GM/dL (10.7-15.3); MCH 28.9 pg (25.7-33.7); MCHC 33.5 g/dl (32.0-36.0); MEAN CELL VOLUME 86.3 fl (80-96); MEAN PLT VOLUME 6.7 fl (7.5-11.1); PLATELET COUNT 398 K/MM3 (134-434); RBC 4.34 M/mm3 (3.60-5.2); RDW 15.2 % (11.6-15.6); WHITE BLOOD COUNT 13.3 K/mm3 (4.0-10.0)
[2019-08-16 14:19] LABS: ALBUMIN 3.4 g/dl (3.4-5.0); BILIRUBIN,TOTAL 0.3 mg/dL (0.2-1); BLOOD UREA NITROGEN 7.6 mg/dL (7-18); CALCIUM 8.9 mg/dL (8.5-10.1); CREATININE 0.6 mg/dL (0.55-1.3); PHOSPHOROUS 2.9 mg/dL (2.5-4.9); POTASSIUM 3.3 mmol/L (3.5-5.1); TOT PROT 6.3 g/dl (6.4-8.2)
[2019-08-16] MEDS: AMPICILLIN NA/SULBACTAM NA 3 GM in SODIUM CHLORIDE 100 ML IVPB SCH ×3 (15:06→21:52)
--- NOTE | 2019-08-16 16:48 | PDOC ---
Documentation entered by Jere Tam SCRIBE, acting as scribe for Erasmo Shankar DO. Erasmo Shankar DO: This documentation has been prepared by the Yonatan hardin Daniel, SCRIBE, under my direction and personally reviewed by me in its entirety. I confirm that the documentation accurately reflects all work, treatment, procedures, and medical decision making performed by me. Attending Attestation - Resident Resident Name: JeffLm - ED Attending Attestation I have performed the following: I have examined & evaluated the patient, The case was reviewed & discussed with the resident, I agree w/resident's findings & plan, Exceptions are as noted - HPI HPI: 08/16/19 00:08 The patient is a 49 year old female with a past medical history of bipolar disorder who presents today with altered mental status and right eye discharge. The patients sister reports that the patient has had right eye crusting and redness for the past few days. 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 Sister is concerned that something is wrong. The patient denies any fever, chills, chest pain, shortness of breath, suicidal ideation, or homicidal ideation. - Physicial Exam PE: 08/16/19 00:08 GENERAL: Awake, alert, and fully oriented, in no acute distress HEAD: No signs of trauma EYES: +right eye bacterial conjunctivitis. Right eye is non proptotic. No pain with extra ocular motion. PERRLA, EOMI, sclera anicteric ENT: Auricles normal inspection, hearing grossly normal, nares patent, oropharynx clear without exudates. Moist mucosa NECK: Normal ROM, supple, no lymphadenopathy, JVD, or masses LUNGS: Breath sounds equal, clear to auscultation bilaterally. No wheezes, and no crackles HEART: Regular rate and rhythm, normal S1 and S2, no murmurs, rubs or gallops ABDOMEN: Soft, nontender, normoactive bowel sounds. No guarding, no rebound. No masses EXTREMITIES: Normal range of motion, no edema. No clubbing or cyanosis. No cords, erythema, or tenderness NEUROLOGICAL: ANOx4. Cranial nerves II through XII grossly intact. Moving all extremities. No facial asymmetry. Normal speech, normal gait PSYCHIATRIC: +pressured speech. +tangentiality. +mild disorganization. SKIN: Warm, Dry, normal turgor, no rashes or lesions noted. - Medical Decision Making 08/16/19 00:09 The patient is a 49 year old female who currently is having a mild manic episode and bacterial conjunctivitis. Afebrile and tachycardic upon arrival. Will evaluate for systemic infection, will give haldol for ti and reassess after haldol is given. Will chemical dependency counselor the patient and reaffirm her safety. Will obtain CT head, UA, and cardiac enzymes. White count of 16, exacerbation of chronic mental illness most likely due to infection. Will cover with broad spectrum antibiotics and admit for failure to thrive and sepsis. EKG Sinus tachycardia 111, normal axis and intervals LVH questionable ST depressions in V4-V6. questionable dig effect Drug screen shows urine amphetamines/benzos, likely w/ drug induced psychosis and sepsis secondary to bacterial conjunctavitis, admitted for ivf / abx and placement as pt cannot take care of herself and is an unsafe discharge. 212508/21/19 18:14
--- NOTE | 2019-08-16 19:35 | PN ---
Physical Exam: SUBJECTIVE: Patient seen and examined, feels comfortable, R eye pain markedly improved, speaking in full sentences, making sense, endorsed "her sister was freaking out because of her eye" which made her anxious, now resolved, denies SI /HI/AH/VH/anxiety/depression currently. VSS. OBJECTIVE: Vital Signs Period Temp Pulse Resp BP Sys/Ureña Pulse Ox Last 24 Hr 97.8 F-98 F 76-114 18-20 134-155/58-93 97-99 GENERAL: The patient is awake, alert, and fully oriented, in no acute distress. Answering to questions. HEAD: Normal with no signs of trauma. EYES: PERRL, extraocular movements intact, R conjunctival injection, R periorbital swelling, L eye unremarkable ENT: Ears normal, nares patent, oropharynx clear without exudates, moist mucous membranes. NECK: Trachea midline, full range of motion, supple. LUNGS: Breath sounds equal, clear to auscultation bilaterally, no wheezes, no crackles, no accessory muscle use. HEART: Regular rate and rhythm, S1, S2 without murmur, rub or gallop. ABDOMEN: Soft, nontender, nondistended, normoactive bowel sounds, no guarding, no rebound, no hepatosplenomegaly, no masses. EXTREMITIES: 2+ pulses, warm, well-perfused, no edema. NEUROLOGICAL: Cranial nerves II through XII grossly intact. Normal speech, gait not observed. PSYCH: Normal mood, normal affect. Answering to questions. SKIN: Warm, dry, normal turgor, no rashes or lesions noted Laboratory Results - last 24 hr 08/15/19 08/15/19 08/15/19 23:00 23:00 23:00 WBC 16.0 H RBC 4.74 Hgb 13.5 Hct 41.1 MCV 86.7 MCH 28.4 MCHC 32.8 RDW 15.0 Plt Count 430 D MPV 7.0 L Absolute Neuts (auto) 12.1 H Neutrophils % 75.6 Lymphocytes % 15.3 D Monocytes % 7.8 Eosinophils % 0.8 Basophils % 0.5 Nucleated RBC % 0 VBG pH POC VBG pCO2 POC VBG pO2 VBG HCO3 VBG O2 Sat (Maurizio) VBG Base Excess Sodium 138 Potassium 3.7 Chloride 105 Carbon Dioxide 28 Anion Gap 5 L BUN 11.5 Creatinine 0.8 Est GFR (CKD-EPI)AfAm 98.93 Est GFR (CKD-EPI)NonAf 85.36 Random Glucose 115 H Hemoglobin A1c % Lactic Acid Calcium 9.3 Phosphorus Magnesium Total Bilirubin 0.5 AST 24 ALT 29 Alkaline Phosphatase 92 Troponin I Total Protein 7.6 Albumin 4.0 TSH Cancelled Urine Color Urine Appearance Urine pH Ur Specific [place] Urine Protein Urine Glucose (UA) Urine Ketones Urine Blood Urine Nitrite Urine Bilirubin Urine Urobilinogen Ur Leukocyte Esterase Digoxin Opiates Screen Methadone Screen Barbiturate Screen Phencyclidine Screen Ur Amphetamines Screen MDMA (Ecstasy) Screen Benzodiazepines Screen Cocaine Screen U Marijuana (THC) Screen RPR Titer 08/15/19 08/16/19 08/16/19 23:00 01:43 01:43 WBC RBC Hgb Hct MCV MCH MCHC RDW Plt Count MPV Absolute Neuts (auto) Neutrophils % Lymphocytes % Monocytes % Eosinophils % Basophils % Nucleated RBC % VBG pH POC VBG pCO2 POC VBG pO2 VBG HCO3 VBG O2 Sat (Maurizio) VBG Base Excess Sodium Potassium Chloride Carbon Dioxide Anion Gap BUN Creatinine Est GFR (CKD-EPI)AfAm Est GFR (CKD-EPI)NonAf Random Glucose Hemoglobin A1c % Lactic Acid 0.9 Calcium Phosphorus Magnesium Total Bilirubin AST ALT Alkaline Phosphatase Troponin I < 0.02 Total Protein Albumin TSH 1.47 Urine Color Urine Appearance Urine pH Ur Specific [place] Urine Protein Urine Glucose (UA) Urine Ketones Urine Blood Urine Nitrite Urine Bilirubin Urine Urobilinogen Ur Leukocyte Esterase Digoxin < 0.3 L Opiates Screen Methadone Screen Barbiturate Screen Phencyclidine Screen Ur Amphetamines Screen MDMA (Ecstasy) Screen Benzodiazepines Screen Cocaine Screen U Marijuana (THC) Screen RPR Titer 08/16/19 08/16/19 08/16/19 01:43 04:15 04:15 WBC RBC Hgb Hct MCV MCH MCHC RDW Plt Count MPV Absolute Neuts (auto) Neutrophils % Lymphocytes % Monocytes % Eosinophils % Basophils % Nucleated RBC % VBG pH 7.37 POC VBG pCO2 52.3 H POC VBG pO2 < 49 H VBG HCO3 29.2 H VBG O2 Sat (Maurizio) 33.6 L VBG Base Excess 3.3 H Sodium Potassium Chloride Carbon Dioxide Anion Gap BUN Creatinine Est GFR (CKD-EPI)AfAm Est GFR (CKD-EPI)NonAf Random Glucose Hemoglobin A1c % Lactic Acid Calcium Phosphorus Magnesium Total Bilirubin AST ALT Alkaline Phosphatase Troponin I Total Protein Albumin TSH Urine Color Yellow Urine Appearance Cloudy Urine pH 6.5 Ur Specific [place] 1.009 L Urine Protein Negative Urine Glucose (UA) Negative Urine Ketones Negative Urine Blood Negative Urine Nitrite Negative Urine Bilirubin Negative Urine Urobilinogen 1.0 Ur Leukocyte Esterase Negative Digoxin Opiates Screen Negative Methadone Screen Negative Barbiturate Screen Negative Phencyclidine Screen Negative Ur Amphetamines Screen Positive A* MDMA (Ecstasy) Screen Negative Benzodiazepines Screen Positive A* Cocaine Screen Negative U Marijuana (THC) Screen Negative RPR Titer 08/16/19 08/16/19 08/16/19 13:28 13:28 13:28 WBC 13.3 H RBC 4.34 Hgb 12.5 Hct 37.4 MCV 86.3 MCH 28.9 MCHC 33.5 RDW 15.2 Plt Count 398 MPV 6.7 L Absolute Neuts (auto) Neutrophils % Lymphocytes % Monocytes % Eosinophils % Basophils % Nucleated RBC % VBG pH POC VBG pCO2 POC VBG pO2 VBG HCO3 VBG O2 Sat (Maurizio) VBG Base Excess Sodium 139 Potassium 3.3 L Chloride 107 Carbon Dioxide 28 Anion Gap 5 L BUN 7.6 Creatinine 0.6 Est GFR (CKD-EPI)AfAm 122.32 Est GFR (CKD-EPI)NonAf 105.54 Random Glucose 91 Hemoglobin A1c % 5.6 Lactic Acid Calcium 8.9 Phosphorus 2.9 Magnesium 2.0 Total Bilirubin 0.3 AST 22 ALT 29 Alkaline Phosphatase 81 Troponin I Total Protein 6.3 L Albumin 3.4 TSH 1.00 Urine Color Urine Appearance Urine pH Ur Specific [place] Urine Protein Urine Glucose (UA) Urine Ketones Urine Blood Urine Nitrite Urine Bilirubin Urine Urobilinogen Ur Leukocyte Esterase Digoxin Opiates Screen Methadone Screen Barbiturate Screen Phencyclidine Screen Ur Amphetamines Screen MDMA (Ecstasy) Screen Benzodiazepines Screen Cocaine Screen U Marijuana (THC) Screen RPR Titer 08/16/19 13:28 WBC RBC Hgb Hct MCV MCH MCHC RDW Plt Count MPV Absolute Neuts (auto) Neutrophils % Lymphocytes % Monocytes % Eosinophils % Basophils % Nucleated RBC % VBG pH POC VBG pCO2 POC VBG pO2 VBG HCO3 VBG O2 Sat (Maurizio) VBG Base Excess Sodium Potassium Chloride Carbon Dioxide Anion Gap BUN Creatinine Est GFR (CKD-EPI)AfAm Est GFR (CKD-EPI)NonAf Random Glucose Hemoglobin A1c % Lactic Acid Calcium Phosphorus Magnesium Total Bilirubin AST ALT Alkaline Phosphatase Troponin I Total Protein Albumin TSH Urine Color Urine Appearance Urine pH Ur Specific [place] Urine Protein Urine Glucose (UA) Urine Ketones Urine Blood Urine Nitrite Urine Bilirubin Urine Urobilinogen Ur Leukocyte Esterase Digoxin Opiates Screen Methadone Screen Barbiturate Screen Phencyclidine Screen Ur Amphetamines Screen MDMA (Ecstasy) Screen Benzodiazepines Screen Cocaine Screen U Marijuana (THC) Screen RPR Titer Nonreactive Active Medications Generic Name Dose Route Start Last Admin Trade Name Ulyssesq PRN Reason Stop Dose Admin Enoxaparin Sodium 40 mg 08/16/19 10:00 08/16/19 12:30 Lovenox - SQ 40 mg DAILY FERNANDEZ Administration Ampicillin Sodium/Sulbactam 100 mls @ 200 mls/hr 08/16/19 09:00 08/16/19 15: 07 Sodium 3 gm/ Sodium Chloride IVPB 200 mls/hr Q6H-IV FERNANDEZ Administration Polymyxin/Trimethoprim Sulfate 1 drop 08/16/19 06:32 08/16/19 18:05 Polytrim Opthalmic Solution - OD 1 drp Q4HWA FERNANDEZ Administration Venlafaxine HCl 75 mg 08/16/19 10:00 08/16/19 12:30 Effexor - PO 75 mg BID FERNANDEZ Administration ASSESSMENT/PLAN: 49 F h/o depression, anxiety presents with R eye conjunctivitis without loss of visual acuity. Sepsis secondary to conjunctivitis of right eye, cellulitis of eyelid Cont. Unasyn, polymyxin eye drops, warm compresses PRN, pain control Follow blood cultures, urine cultures. UA not suggestive of UTI, IVF Acute metabolic encephalopathy v.s. ?panic attack resolved, endorses her sister made her anxious by "freaking out" about her eye takes Adderall for ADHD, now off of it, ?rebound anxiety from stopping it Cont. Effexor 75mg BID, psych consult Prophylaxis Lovenox SC Med Surg 24 hour DC notice Visit type - Emergency Visit Emergency Visit: Yes ED Registration Date: 08/16/19 Care time: The patient presented to the Emergency Department on the above date and was hospitalized for further evaluation of their emergent condition. - New Patient This patient is new to me today: Yes Date on this admission: 08/16/19 - Critical Care Critical Care patient: No - Discharge Referral Referred to [facility] Med P.C.: No
[2019-08-16] MEDS ORDERED: VENLAFAXINE HCL 75 MG TABLET ONE (20:25)
[2019-08-16] MEDS ORDERED: BACITRACIN/POLYMYXIN OPH OINT 3.5 GM TUBE OD ONE (22:26)
[2019-08-17 02:28] VITALS: BMI 33.0
[2019-08-17] MEDS ORDERED: PNEUMOC 13-VAL CONJ-DIP CRM/PF 0.5 ML DISP.SYRIN IM ONE (02:28)
[2019-08-17] MEDS: AMPICILLIN NA/SULBACTAM NA 3 GM in SODIUM CHLORIDE 100 ML IVPB SCH ×2 (03:21→11:20)
[2019-08-17] MEDS: POLYMYXIN B SULFATE/TMP 10 ML OPHTHALMIC SOLUTION OD SCH ×5 (07:00→21:59)
[2019-08-17 08:48] LABS: HEMATOCRIT 34.7 % (32.4-45.2); HEMOGLOBIN 11.7 GM/dL (10.7-15.3); MCH 28.9 pg (25.7-33.7); MCHC 33.6 g/dl (32.0-36.0); MEAN CELL VOLUME 86.1 fl (80-96); RBC 4.03 M/mm3 (3.60-5.2); WHITE BLOOD COUNT 9.3 K/mm3 (4.0-10.0)
[2019-08-17 08:49] LABS: BASO % 0.7 % (0-2.0); LYMPH % 23.5 % (8-40); MEAN PLT VOLUME 6.9 fl (7.5-11.1); NEUT % 66.8 % (42.8-82.8); PLATELET COUNT 374 K/MM3 (134-434); RDW 14.8 % (11.6-15.6)
[2019-08-17 09:21] LABS: ALBUMIN 3.1 g/dl (3.4-5.0); BILIRUBIN,TOTAL 0.3 mg/dL (0.2-1); BLOOD UREA NITROGEN 4.7 mg/dL (7-18); CALCIUM 8.6 mg/dL (8.5-10.1); CREATININE 0.6 mg/dL (0.55-1.3); POTASSIUM 3.2 mmol/L (3.5-5.1); TOT PROT 6.1 g/dl (6.4-8.2)
[2019-08-17] MEDS ORDERED: PT OWN MED DRAWER 7, Y5N ONE ×2 (09:54→11:18)
[2019-08-17] MEDS: VENLAFAXINE HCL 75 MG TABLET PO SCH (10:01)
[2019-08-17] MEDS: ENOXAPARIN NA (PORCINE) 40 MG/0.4 ML DISP.SYRIN SQ SCH (10:01)
[2019-08-17] MEDS ORDERED: FLU VACCINE QUAD 60 MCG/0.5 ML (MDV 19-20) IM ONE (11:00)
[2019-08-17] MEDS ORDERED: PNEUMOCOCCAL 23 VACCINE 0.5 ML VIAL IM ONE (11:00)
[2019-08-17] MEDS ORDERED: clonazePAM 0.5 MG TABLET PO PRN (13:52)
--- NOTE | 2019-08-17 13:57 | PN ---
Physical Exam: SUBJECTIVE: Patient seen and examined; no new complaints. No fevers, no white count. no issues. Restarted home meds. Discontinued adderall as ti concern ; likely also precipitated by the cenlafaxine too with underlying bipolar but will let her wean off as OP and adderall would cause ti more so opting to do one at a time. Checking orbital CT and changing unasyn to PO Augmentin. If negative orbital CT can go. *Appreciate psychatric consultation made by prior MD but patient doesn't need acutely. No SI/HI, no active ti. Can have meds titrated as OP as no acute complaints and not acutely manic. 10 sys ROS done and negative aside from HPI OBJECTIVE: Vital Signs Period Temp Pulse Resp BP Sys/Ureña Pulse Ox Last 24 Hr 98 F-98.7 F 75-100 18-20 134-156/58-91 97-98 GENERAL: The patient is awake, alert, and fully oriented, in no acute distress. HEAD: Normal with no signs of trauma. EYES: PERRL, extraocular movements intact, sclera anicteric, conjunctiva clear. No ptosis. ENT: Ears normal, nares patent, oropharynx clear without exudates, moist mucous membranes. NECK: Trachea midline, full range of motion, supple. LUNGS: Breath sounds equal, clear to auscultation bilaterally, no wheezes, no crackles, no accessory muscle use. HEART: Regular rate and rhythm, S1, S2 without murmur, rub or gallop. ABDOMEN: Soft, nontender, nondistended, normoactive bowel sounds, no guarding, no rebound, no hepatosplenomegaly, no masses. EXTREMITIES: 2+ pulses, warm, well-perfused, no edema. NEUROLOGICAL: Cranial nerves II through XII grossly intact. Normal speech, gait not observed. PSYCH: Normal mood, normal affect. SKIN: Warm, dry, normal turgor, no rashes or lesions noted Laboratory Results - last 24 hr 08/16/19 08/16/19 08/16/19 13:28 13:28 13:28 WBC RBC Hgb Hct MCV MCH MCHC RDW Plt Count MPV Absolute Neuts (auto) Neutrophils % Lymphocytes % Monocytes % Eosinophils % Basophils % Sodium 139 Potassium 3.3 L Chloride 107 Carbon Dioxide 28 Anion Gap 5 L BUN 7.6 Creatinine 0.6 Est GFR (CKD-EPI)AfAm 122.32 Est GFR (CKD-EPI)NonAf 105.54 Random Glucose 91 Hemoglobin A1c % 5.6 Calcium 8.9 Phosphorus 2.9 Magnesium 2.0 Total Bilirubin 0.3 AST 22 ALT 29 Alkaline Phosphatase 81 Total Protein 6.3 L Albumin 3.4 TSH 1.00 RPR Titer Nonreactive 08/17/19 08/17/19 08:20 08:20 WBC 9.3 RBC 4.03 Hgb 11.7 Hct 34.7 MCV 86.1 MCH 28.9 MCHC 33.6 RDW 14.8 Plt Count 374 MPV 6.9 L Absolute Neuts (auto) 6.2 Neutrophils % 66.8 Lymphocytes % 23.5 D Monocytes % 7.0 Eosinophils % 2.0 D Basophils % 0.7 Sodium 139 Potassium 3.2 L Chloride 106 Carbon Dioxide 26 Anion Gap 7 L BUN 4.7 L Creatinine 0.6 Est GFR (CKD-EPI)AfAm 122.32 Est GFR (CKD-EPI)NonAf 105.54 Random Glucose 112 H Hemoglobin A1c % Calcium 8.6 Phosphorus Magnesium Total Bilirubin 0.3 AST 17 ALT 27 Alkaline Phosphatase 79 Total Protein 6.1 L Albumin 3.1 L TSH RPR Titer Active Medications Generic Name Dose Route Start Last Admin Trade Name Freq PRN Reason Stop Dose Admin Amoxicillin/Clavulanate Potassium 1 tab 08/17/19 17:30 Augmentin - 875mg Tablet PO BID@0800,1730 FERNANDEZ Aripiprazole 20 mg 08/17/19 22:00 Abilify PO HS FERNANDEZ Non-Formulary Medication 1 mg 08/17/19 13:52 Clonazepam [Klonopin] PO HS PRN INSOMNIA Polymyxin/Trimethoprim Sulfate 1 drop 08/16/19 06:32 08/17/19 10:01 Polytrim Opthalmic Solution - OD 1 drp Q4HWA FERNANDEZ Administration Venlafaxine HCl 75 mg 08/16/19 10:00 08/17/19 10:01 Effexor - PO 75 mg BID FERNANDEZ Administration Venlafaxine HCl 75 mg 08/17/19 14:00 Effexor - PO DAILY FERNANDEZ Orbital CT pending CT head results reviewed ASSESSMENT/PLAN: Patient reveals they have been snorting amphetamines/ritalin at home which corresponded to the manc episodes. 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 NO si -hi the entire time here. Reasonable behavior per nursing. No suicidal gesturaes, homicidal gestures. Sister informed me that she would not be taking patient home due to concerns she is doing drugs. I informed her that she cannot be held against her will. Sister accused me of several nasty things, but overall she states her sister is homicidal and cannot be discharged and threatened to zaki. Consulting psych and if indicated will disucss with risk. Visit type - Emergency Visit Emergency Visit: Yes ED Registration Date: 08/16/19 Care time: The patient presented to the Emergency Department on the above date and was hospitalized for further evaluation of their emergent condition. - New Patient This patient is new to me today: Yes Date on this admission: 08/22/19 - Critical Care Critical Care patient: No
[2019-08-17] MEDS ORDERED: PATIENT'S OWN MEDICATION (NON-FORMULARY) (Dextroamphetamine/Amphetamine [Adderall 10 Mg Ta PO SCH (14:00)
[2019-08-17] MEDS: VENLAFAXINE HCL 75 MG E.R. CAPSULES PO SCH (16:42)
[2019-08-17] MEDS: AMOX TR/POT CLAV 875MG/125MG TABLETS (FP) PO SCH (18:33)
[2019-08-17] MEDS ORDERED: ARIPiprazole 10 MG TABLET PO SCH (22:00)
[2019-08-17] MEDS ORDERED: HYDROCHLOROTHIAZIDE 12.5 MG CAPSULE (FP) PO ONE (23:15)
[2019-08-18] MEDS: POLYMYXIN B SULFATE/TMP 10 ML OPHTHALMIC SOLUTION OD SCH ×3 (06:14→15:20)
[2019-08-18] MEDS: AMOX TR/POT CLAV 875MG/125MG TABLETS (FP) PO SCH ×2 (10:17→16:19)
[2019-08-18] MEDS: VENLAFAXINE HCL 75 MG E.R. CAPSULES PO SCH (10:21)
[2019-08-18] MEDS ORDERED: PT OWN MED DRAWER 7, Y5N ONE (10:21)
--- NOTE | 2019-08-18 13:55 | CON.PSY ---
Psychiatry Consult Chief Complaint: 49 year old Female with a life long History Of Psych Illness. [facility]amg [facility] at [facility] with Conjunctivitis. - Previous Psychiatric Treatment Outpatient: Less than 6 mos ago Inpatient: One prior admission - Previous Substance Abuse Treatment Outpatient: None Inpatient: None - Reason for Previous Treatment Reason for Previous Treatment: Major Depression, Attention Deficit - Current Medications Current Medications: Active Medications Amoxicillin/Clavulanate Potassium (Augmentin - 875mg Tablet) 1 tab PO BID@0800, 1730 [facility] Last Admin: 08/18/19 10:17 Dose: 1 tab Aripiprazole (Abilify) 20 mg PO HS [facility] Last Admin: 08/17/19 22:00 Dose: 20 mg Clonazepam (Klonopin -) 1 mg PO HS PRN PRN Reason: INSOMNIA Polymyxin/Trimethoprim Sulfate (Polytrim Opthalmic Solution -) 1 drop OD Q4HWA [facility] Last Admin: 08/18/19 10:17 Dose: 1 drp Venlafaxine HCl (Effexor -) 75 mg PO BID [facility] - Allergies Allergies: Allergies Allergy/AdvReac Type Severity Reaction Status Date / Time No Known Allergies Allergy Verified 08/15/19 21:33 - Current Living Status Usual Living Arrangement: Alone - Current Mental Status Evaluation Appearance: Well Groomed Attitude: Cooperative - Affect Affect: Full Range Appropriateness: Appropriate to Content - Mood Mood: Euthymic - Speech/Language Expressive: Coherent - Psychomotor Activity Psychomotor Activity: Normal - Thought Process Thought Process: Intact - Thought Content Hallucinations: Absent Delusions: Absent - Self Perception Self Perception: No Impairment - Cognition Attention: Alert Orientation: Time Memory, Immediate Recall: Intact Memory, Short Term: 3/3 Memory, Remote with Promptin/3 - Concentration Serial Sevens Intact: Yes Simple Calculations Intact: Yes - Abstraction Proverb Interpretation: Intact Judgement: Intact - Insight Insight: Intact - Impulse Control Impulse Control: Good Control - Suicidal Ideation Suicidal Ideation: No - Homicidal Ideation Homicidal Ideation: No Assessment/Plan 1) Patient is Psychiatrically stable. 2) Discharge HOme when Medically clear. 3) follow up with De. Mcclellan at [facility] in [place].
[2019-08-18 15:18] VITALS: BP 154/86; PULSE 89; TEMP 98.8
--- NOTE | 2019-08-18 19:32 | PN ---
Physical Exam: SUBJECTIVE: Patient seen and examined OBJECTIVE: Vital Signs Period Temp Pulse Resp BP Sys/Ureña Pulse Ox Last 24 Hr 97.7 F-98.8 F 83-107 20-20 139-165/82-98 97-97 GENERAL: The patient is awake, alert, and fully oriented, in no acute distress. HEAD: Normal with no signs of trauma. EYES: PERRL, extraocular movements intact, sclera anicteric, conjunctiva clear. No ptosis. ENT: Ears normal, nares patent, oropharynx clear without exudates, moist mucous membranes. NECK: Trachea midline, full range of motion, supple. LUNGS: Breath sounds equal, clear to auscultation bilaterally, no wheezes, no crackles, no accessory muscle use. HEART: Regular rate and rhythm, S1, S2 without murmur, rub or gallop. ABDOMEN: Soft, nontender, nondistended, normoactive bowel sounds, no guarding, no rebound, no hepatosplenomegaly, no masses. EXTREMITIES: 2+ pulses, warm, well-perfused, no edema. NEUROLOGICAL: Cranial nerves II through XII grossly intact. Normal speech, gait not observed. PSYCH: Normal mood, normal affect. SKIN: Warm, dry, normal turgor, no rashes or lesions noted ASSESSMENT/PLAN: ATTENDING PHYSICIAN STATEMENT I saw and evaluated the patient. I reviewed the resident's note and discussed the case with the resident. I agree with the resident's findings and plan as documented. SUBJECTIVE: OBJECTIVE: ASSESSMENT AND PLAN:
[2019-08-18] MEDS ORDERED: VENLAFAXINE HCL 75 MG TABLET PO SCH (22:00)
== END 2019-08-18 16:42 | disposition home or self-care (01) | DRG 871 ==
LOC: JER 21:17 → JERBED 08-16 01:56 → J5S 08-17 01:43
PROVIDERS: ADMIT Internal Medicine; ATTEND Internal Medicine
DX: A41.89 Other specified sepsis (principal); G93.41 Metabolic encephalopathy; L03.213 Periorbital cellulitis; F32.9 Major depressive disorder, single episode, unspecified; F31.9 Bipolar disorder, unspecified; D72.829 Elevated white blood cell count, unspecified; R00.0 Tachycardia, unspecified; H10.31 Unspecified acute conjunctivitis, right eye
CPT/HCPCS: 36415; 70450-TC; 71045-TC-FY; 80053; 80162; 80307; 81003; 82803; 83036; 83605; 83735; 84100; 84443; 84484; 85025; 85027; 86593; 87040; 87086; 87899; 90732; 93005; 93010; 97116-GP; 97161-GP; 99285-25; G0008; G0009; Q2036

== ENCOUNTER 2019-12-18 19:01 | Emergency (ER) | payer OTHER ==
[2019-12-18 19:22] VITALS: BMI 34.0
[2019-12-18] MEDS ORDERED: SODIUM CHLORIDE 0.9% 500 ML INFUS.BAG IV ONE (19:31)
--- NOTE | 2019-12-18 19:33 | PDOC ---
History of Present Illness - General Chief Complaint: Blood Pressure Problem Stated Complaint: HYPERTENSION - History of Present Illness Initial Comments: The pt is a 49F w/ a history of depression, bipolar disorder, arthritis who presents for evaluation of 'feeling hot' at home today. At approximately 1830 today the pt stated she was resting at home when she began to feel hot all over and became nervous that it may be from her heart, liver, or kidneys. She does not have A/C in her apt but denies doing anything before her symptoms began. She was watching TV when it began. She states now her symptoms are resolving but was felt anxious about her symptoms and wanted to be evaluated. She denies JAIME, vision changes, fevers, FUENTES, abdominal pain, vomiting, diarrhea, dysuria, hematuria Pt reports taking her meds today Denies history of stroke/CT 12/18/19 19:33 Past History - Medical History Allergies/Adverse Reactions: Allergies Allergy/AdvReac Type Severity Reaction Status Date / Time No Known Allergies Allergy Verified 12/18/19 19:20 Home Medications: Ambulatory Orders Aripiprazole [Abilify] 20 mg PO HS 03/18/17 Clonazepam [Klonopin] 1 mg PO HS PRN 03/18/17 Dextroamphetamine/Amphetamine [Adderall 10 mg Tablet] 20 mg PO BID 08/17/19 Venlafaxine HCl [Effexor -] 75 mg PO DAILY 08/17/19 Amox-Tr/K Cl [Augmentin 875-125mg Tablet -] 1 tab PO BID@0800,1730 5 Days #10 tablet 08/18/19 Anemia: No Asthma: Yes Cancer: No Cardiac Disorders: No CVA: No COPD: No CHF: No Dementia: No Diabetes: No GI Disorders: No Disorders: No HTN: Yes Hypercholesterolemia: No Liver Disease: No Psychiatric Problems: Yes Seizures: No Thyroid Disease: No - Psycho-Social/Smoking History Smoking History: Never smoked Have you smoked in the past 12 months: Yes Number of Cigarettes Smoked Daily: 7 If you are a former smoker, when did you quit?: 2 wks ago 'Breaking Loose' booklet given: 03/18/17 - Substance Abuse Hx (Audit-C & DAST Scrn) How often the patient has a drink containing alcohol: Never Score: In Men: 4 or > Positive; In Women: 3 or > Positive: 0 Screen Result (Pos requires Nsg. Audit-10AR): Negative In the last yr the pt used illegal drug/Rx for NonMed reason: No Score: Yes response is considered Positive: 0 Screen Result (Positive result requires Nsg. DAST-10): Negative Review of Systems - Review of Systems Able to Perform ROS?: Yes Comments:: GENERAL/CONSTITUTIONAL: No chills HEAD, EYES, EARS, NOSE AND THROAT: No change in vision. No change in hearing CARDIOVASCULAR: No shortness of breath RESPIRATORY: Endorses chronic cough w/o change GASTROINTESTINAL: +nausea; denies vomiting, diarrhea or constipation GENITOURINARY: No dysuria, frequency, or change in urination MUSCULOSKELETAL: +chronic arthritis SKIN: No rash NEUROLOGIC: No headache, vertigo, loss of consciousness, or change in strength/sensation ENDOCRINE: No increased thirst. No abnormal weight change HEMATOLOGIC/LYMPHATIC: No anemia, easy bleeding, or history of blood clots ALLERGIC/IMMUNOLOGIC: No hives or skin allergy 12/18/19 19:31 Is the patient limited Bulgarian proficient: No *Physical Exam - Vital Signs Last Vital Signs Temp Pulse Resp BP Pulse Ox 98.3 F 92 H 20 147/87 97 12/18/19 19:18 12/18/19 19:18 12/18/19 19:18 12/18/19 19:18 12/18/19 19:18 - Physical Exam GENERAL: Awake, alert, and oriented to person/place/time, no distress HEAD: No signs of trauma, normocephalic, atraumatic EYES: PERRLA, EOMI, sclera anicteric, conjunctiva clear ENT: Hearing grossly normal, nares patent, oropharynx clear without exudates LUNGS: No distress, speaks in full sentences, clear to auscultation bilaterally HEART: Regular rate and rhythm, normal S1 and S2, no murmurs appreciated, peripheral pulses normal and equal bilaterally ABDOMEN: Soft, nontender, normoactive bowel sounds. No guarding, no rebound EXTREMITIES: Normal inspection, Normal range of motion, no edema. No clubbing or cyanosis NEUROLOGICAL: Cranial nerves II through XII grossly intact. Normal speech, no focal sensorimotor deficits SKIN: Warm, Dry 12/18/19 19:32 ED Treatment Course - LABORATORY CBC & Chemistry Diagram: 12/18/19 20:20 12/18/19 20:20 - RADIOLOGY Radiology Studies Ordered: Category Date Time Status CHEST X-RAY PORTABLE* [RAD] Stat Radiology 12/18/19 19:30 Ordered Medical Decision Making - Medical Decision Making The pt is a 49F w/ a history of depression, bipolar disorder who presents for evaluation of 'feeling hot' at home today. She reports that this sensation is resolving but is concerned that it may be from 'organ dysfunction' ED Course Will evaluate for ACS, dehydration, MARY KATE, metabolic dysfunction CMP, CBC, Trop I ECG CXR 1L NS Will re-evaluate 12/18/19 19:37 ECG w/ NSR; HR 81; QTc 432; no axis deviation; nonspecific TW abn; abn ECG No anemia Lytes overall unremarkable LFTs unremarkable No MARY KATE Trop I neg CK elevated to 209, pt receiving IVF, will recheck with second Trop I TSH wnl 12/18/19 21:29 Repeat Trop I neg Repeat CK improved s/p IVF Pt asymptomatic at this time Plan for D/C w/ PCP/Cards f/u Discharge instructions and return precautions given Patient in agreement and verbalized understanding Dispo: Home Discharge - Discharge Information Problems reviewed: Yes Clinical Impression/Diagnosis: Chest pain Qualifiers: Chest pain type: unspecified Qualified Code(s): R07.9 - Chest pain, unspecified Condition: Stable Disposition: HOME - Admission No - Follow up/Referral Referrals: Hammad Banks MD [Primary Care Provider] - John Barton MD [Staff Physician] - Luigi Stover MD [Staff Physician] - - Patient Discharge Instructions Patient Printed Discharge Instructions: DI for Atypical Chest Pain Additional Instructions: You were seen in the Emergency Department for evaluation of a hot sensation and chest pain. Your labs and imaging were unremarkable. Review the handouts provided at discharge. Continue to take your medications as directed. Return to the Emergency Department if you develop fevers, chest pain, trouble breathing, worsening symptoms, or any new/concerning symptoms. - Post Discharge Activity
[2019-12-18 20:37] LABS: BASO % 0.6 % (0-2.0); EOS % 0.3 % (0-4.5); HEMATOCRIT 42.6 % (32.4-45.2); HEMOGLOBIN 14.1 GM/dL (10.7-15.3); LYMPH % 11.3 % (8-40); MCH 28.7 pg (25.7-33.7); MEAN CELL VOLUME 86.8 fl (80-96); MEAN PLT VOLUME 7.6 fl (7.5-11.1); MONO % 5.5 % (3.8-10.2); NEUT % 82.3 % (42.8-82.8); PLATELET COUNT 390 K/MM3 (134-434); RBC 4.91 M/mm3 (3.60-5.2); RDW 14.6 % (11.6-15.6); WHITE BLOOD COUNT 13.9 K/mm3 (4.0-10.0)
[2019-12-18 21:18] LABS: ALBUMIN 4.2 g/dl (3.4-5.0); ALK PHOS 99 U/L (45-117); ANION GAP 9 MMOL/L (8-16); BILIRUBIN,TOTAL 0.7 mg/dL (0.2-1); BLOOD UREA NITROGEN 17.4 mg/dL (7-18); CALCIUM 9.1 mg/dL (8.5-10.1); CHLORIDE 102 mmol/L (98-107); CO2 27 mmol/L (21-32); CREATININE 0.6 mg/dL (0.55-1.3); GLUCOSE,RANDOM 109 mg/dL (74-106); SGOT/AST 37 U/L (15-37); SGPT/ALT 34 U/L (13-61); SODIUM 137 mmol/L (136-145); TOT PROT 7.6 g/dl (6.4-8.2)
--- NOTE | 2019-12-18 22:17 | PDOC ---
Documentation entered by Artem Patiño SCRIBE, acting as scribe for Mirela Barroso MD. Mirela Barroso MD: This documentation has been prepared by the Velia hardin Nirvannie, SCRIBE, under my direction and personally reviewed by me in its entirety. I confirm that the documentation accurately reflects all work, treatment, procedures, and medical decision making performed by me. Attending Attestation - Resident Resident Name: FernietaliParkerLm - ED Attending Attestation I have performed the following: I have examined & evaluated the patient, The case was reviewed & discussed with the resident, I agree w/resident's findings & plan, Exceptions are as noted - HPI HPI: 12/18/19 19:24 49 yo F h/o anxiety, insomnia, depression, and bipolar disorder who presents to the ED for evaluation of "feeling hot." As per patient, while at home at rest watching tv she began to feel hot happened just after she realized she had forgotten to take her psych medications, took the pills, then suddenly felt naue a, and hot. shortly after she had right sided chest pain. states her appartment. no family h/o cad. long time smoker however. denies ingestions. Her symptoms have since resolved but, she continued to become anxious, prompting her arrival to the ED. She denies any cough, sob, or history of IL. hasn' been sleepig well, but denies SI or HI. no ingestions. did take her bp meds today, but had forgetten earlier in the day. Allergies: NKDA 12/18/19 22:12 - Physicial Exam PE: 12/20/19 08:55 awake alert lungs clear bilat heart rrr no mrg abd soft nt nd ext wwp. no edema. no calf tenderness nuero alert oriented x 3. - Medical Decision Making 12/20/19 08:55 49 yo F with ho psychiatric illness, here today wtih c/o feeling hot . states she hadn't taken her meds, to took her effexor, shortly after felt hot and nauses. did not take her bp meds today, took shortly after. no cp no sob. no other complaints. denies drug use or thought of self harm. has since resolved and overall she is feeling better. was lying watching tv at the time it happend. no loc. no palpitations. normal exam plan r/o anemia, dysrthymia, pt temp normal. recommend she keep house cool with fan, currently did not have ac on hot day. told to return for any recurrent sxs. cxr negative for infection . labs unremarkable. ck and cardiac workup normnal. ekg unremarkable. dc to home. Heart Score/ECG Review #1 General ECG Interpretation: Sinus Rhythm, Normal Rate (81), Normal Intervals, No acute ischemic changes Compared to previous ECG there are: Other (TWI III, AVF. V5, V6.) Discharge - Discharge Information Problems reviewed: Yes Clinical Impression/Diagnosis: Chest pain Qualifiers: Chest pain type: unspecified Qualified Code(s): R07.9 - Chest pain, unspecified Condition: Stable Disposition: HOME - Follow up/Referral Referrals: Hammad Banks MD [Primary Care Provider] - Luigi Stover MD [Staff Physician] - John Barton MD [Staff Physician] - - Patient Discharge Instructions Patient Printed Discharge Instructions: DI for Atypical Chest Pain Additional Instructions: You were seen in the Emergency Department for evaluation of a hot sensation and chest pain. Your labs and imaging were unremarkable. Review the handouts provided at discharge. Continue to take your medications as directed. Return to the Emergency Department if you develop fevers, chest pain, trouble breathing, worsening symptoms, or any new/concerning symptoms. - Post Discharge Activity
[2019-12-18 23:33] LABS: URINE APPEARANCE CLEAR; URINE BILIRUBIN NEGATIVE (NEGATIVE); URINE COLOR YELLOW; URINE GLUCOSE (UA) NEGATIVE (NEGATIVE); URINE KETONE 2+ (NEGATIVE); URINE LEUK ESTERASE NEGATIVE (NEGATIVE); URINE NITRITE NEGATIVE (NEGATIVE); URINE PROTEIN TRACE (NEGATIVE)
[2019-12-19 00:47] VITALS: BP 137/75; PULSE 85; TEMP 98.5
--- NOTE | 2019-12-19 17:39 | EKG ---
Test Reason : Blood Pressure : / mmHG Vent. Rate : 081 BPM Atrial Rate : 081 BPM P-R Int : 132 ms QRS Dur : 096 ms QT Int : 372 ms P-R-T Axes : 011 047 265 degrees QTc Int : 432 ms NORMAL SINUS RHYTHM POSSIBLE LEFT ATRIAL ENLARGEMENT LEFT VENTRICULAR HYPERTROPHY WITH REPOLARIZATION ABNORMALITY ABNORMAL ECG WHEN COMPARED WITH ECG OF 15-AUG-2019 22:05, INVERTED T WAVES HAVE REPLACED NONSPECIFIC T WAVE ABNORMALITY IN INFERIOR LEADS INVERTED T WAVES HAVE REPLACED NONSPECIFIC T WAVE ABNORMALITY IN LATERAL LEADS Confirmed by DONNY VASQUEZ MD ([id number]) on 12/19/2019 5:38:56 PM Referred By: Confirmed By:DONNY VASQUEZ MD
== END 2019-12-19 01:39 | disposition home or self-care (01) ==
LOC: JER 19:01
DX: R07.9 Chest pain, unspecified (principal)
CPT/HCPCS: 36415; 71045-TC-FY; 80053; 81003; 82550; 82553; 84443; 84484; 85025; 87086; 87186; 93005; 93010; 99285-25

== ENCOUNTER 2020-12-23 10:29 | Emergency (ER) | payer OTHER ==
[2020-12-23 11:09] VITALS: TEMP 98.6; BMI 24.0
[2020-12-23 12:04] LABS: BASO % 0.3 % (0-2.0); EOS % 0.4 % (0-4.5); HEMOGLOBIN 14.1 GM/dL (10.7-15.3); LYMPH % 5.1 % (8-40); MCH 29.2 pg (25.7-33.7); MCHC 32.7 g/dl (32.0-36.0); MEAN CELL VOLUME 89.2 fl (80-96); MEAN PLT VOLUME 7.1 fl (7.5-11.1); MONO % 5.7 % (3.8-10.2); NEUT % 88.5 % (42.8-82.8); PLATELET COUNT 446 10^3/uL (134-434); RBC 4.82 M/mm3 (3.60-5.2); WHITE BLOOD COUNT 27.8 K/mm3 (4.0-10.0)
[2020-12-23 12:21] LABS: CALCIUM 8.6 mg/dL (8.5-10.1)
[2020-12-23 12:22] LABS: BLOOD UREA NITROGEN 10.4 mg/dL (7-18)
[2020-12-23 12:25] LABS: CREATININE 0.8 mg/dL (0.55-1.3)
[2020-12-23 12:26] LABS: BILIRUBIN,TOTAL 0.2 mg/dL (0.2-1); TOT PROT 7.4 g/dl (6.4-8.2)
[2020-12-23 12:40] LABS: ANISOCYTOSIS 0; HELMET CELLS 0; HOWELL-JOLLY BODIES 0; MACROCYTOSIS 0; OVALOCYTE 0; PLATELET ESTIMATE NORMAL; ROULEAU 0; SICKELED CELLS 0; TARGET CELLS 0; TEAR DROP CELLS 0; TOXIC GRANULATION 0
[2020-12-23 14:49] VITALS: BP 116/80; PULSE 92
== END 2020-12-23 15:03 | disposition home or self-care (01) ==
LOC: JER 10:29
DX: T40.2X1A Poisoning by other opioids, accidental (unintentional), initial encounter (principal)
CPT/HCPCS: 36415; 80053; 80307; 85025; 99283-25

== ENCOUNTER 2021-02-02 06:40 | Observation (INO) | payer OTHER ==
[2021-02-02] MEDS ORDERED: ACETAMINOPHEN 325 MG TABLET (FP) PO ONE (07:23)
[2021-02-02] MEDS ORDERED: ONDANSETRON 4 MG/2 ML VIAL IVPUSH ONE (07:23)
[2021-02-02] MEDS ORDERED: LACTATED RINGERS SOLUTION 1000 ML INFUS.BAG IV ONE ×2 (07:24→09:53)
[2021-02-02] MEDS ORDERED: FAMOTIDINE 20 MG/50 ML IVPB 20 MG in PREMIX 50 IVPB ONE (08:23)
[2021-02-02] MEDS ORDERED: METOCLOPRAMIDE HCL INJECTION 10 MG/2 ML VIAL IVPUSH ONE (08:23)
[2021-02-02] MEDS ORDERED: ONDANSETRON 4 MG/2 ML VIAL ONE (08:27)
[2021-02-02] MEDS ORDERED: METOCLOPRAMIDE HCL INJECTION 10 MG/2 ML VIAL ONE (08:27)
[2021-02-02] MEDS ORDERED: ACETAMINOPHEN 325 MG TABLET (FP) ONE (08:27)
[2021-02-02] MEDS ORDERED: FAMOTIDINE 20 MG/50 ML IVPB 20 MG/50 ML MG IVPB ONE ×2 (08:27→12:22)
[2021-02-02 09:06] LABS: BASO % 0.4 % (0-2.0); EOS % 0.4 % (0-4.5); HEMATOCRIT 41.3 % (32.4-45.2); HEMOGLOBIN 14.3 GM/dL (10.7-15.3); LYMPH % 15.7 % (8-40); MCH 30.2 pg (25.7-33.7); MCHC 34.6 g/dl (32.0-36.0); MEAN CELL VOLUME 87.4 fl (80-96); MEAN PLT VOLUME 6.7 fl (7.5-11.1); MONO % 6.9 % (3.8-10.2); NEUT % 76.6 % (42.8-82.8); PLATELET COUNT 347 10^3/uL (134-434); RBC 4.72 M/mm3 (3.60-5.2); URINE APPEARANCE CLEAR; URINE BILIRUBIN NEGATIVE (NEGATIVE); URINE COLOR YELLOW; URINE GLUCOSE (UA) NEGATIVE (NEGATIVE); URINE KETONE NEGATIVE (NEGATIVE); URINE LEUK ESTERASE NEGATIVE (NEGATIVE); URINE NITRITE NEGATIVE (NEGATIVE); URINE PROTEIN NEGATIVE (NEGATIVE); URINE UROBILINOGEN 0.2 mg/dL (0.2-1.0); WHITE BLOOD COUNT 14.7 K/mm3 (4.0-10.0)
[2021-02-02 09:25] LABS: CHLORIDE 103 mmol/L (98-107); SODIUM 138 mmol/L (136-145)
[2021-02-02 09:28] LABS: ALBUMIN 3.8 g/dl (3.4-5.0); ANION GAP 9 MMOL/L (8-16); BLOOD UREA NITROGEN 8.8 mg/dL (7-18); CO2 26 mmol/L (21-32); GLUCOSE,RANDOM 85 mg/dL (74-106); LIPASE 997 U/L (73-393)
[2021-02-02 09:29] LABS: SGPT/ALT 22 U/L (13-61)
[2021-02-02 09:30] LABS: CREATININE 0.5 mg/dL (0.55-1.3); SGOT/AST 10 U/L (15-37)
[2021-02-02 09:31] LABS: BILIRUBIN,TOTAL 0.2 mg/dL (0.2-1); TOT PROT 7.1 g/dl (6.4-8.2)
[2021-02-02 09:34] LABS: ALK PHOS 73 U/L (45-117)
[2021-02-02] MEDS ORDERED: ACETAMINOPHEN 325 MG TABLET (FP) PO PRN (10:37)
[2021-02-02] MEDS: LACTATED RINGERS SOLUTION 1,000 ML IV SCH ×2 (10:53→22:04)
[2021-02-02] MEDS ORDERED: PATIENT'S OWN MEDICATION (NON-FORMULARY) (Dextroamphetamine/Amphetamine [Adderall 10 Mg Ta PO PRN (11:01)
[2021-02-02 11:08] LABS: CHOLESTEROL 195 mg/dL (50-200); HDL CHOLESTEROL 58 mg/dL (40-60); LDL CHOLESTEROL (ONLY SJRH) 110 mg/dL (5-100); TRIGLYCERIDES 113 mg/dL (0-150)
[2021-02-02] MEDS ORDERED: ONDANSETRON 4 MG/2 ML VIAL IVPUSH PRN (11:48)
[2021-02-02] MEDS ORDERED: amLODIPine BESYLATE 5 MG TABLET (FP) ONE (12:20)
[2021-02-02] MEDS ORDERED: VENLAFAXINE HCL 75 MG TABLET ONE (12:22)
[2021-02-02] MEDS: VENLAFAXINE HCL 75 MG TABLET PO SCH (12:55)
[2021-02-02] MEDS: amLODIPine BESYLATE 10 MG TABLET (FP) PO SCH (12:55)
[2021-02-02] MEDS: FAMOTIDINE 20 MG/50 ML IVPB 20 MG/50 ML MG IVPB SCH ×2 (12:55→21:50)
[2021-02-02 15:55] LABS: COCAINE, UR NEGATIVE (NEGATIVE); URINE AMPHETAMINES NEGATIVE (NEGATIVE)
[2021-02-02 15:56] LABS: METHADONE, UR NEGATIVE (NEGATIVE); OPIATES, URI NEGATIVE (NEGATIVE); PHENCYCLIDINE,URINE NEGATIVE (NEGATIVE)
[2021-02-02 15:57] LABS: URINE BARBITURATES NEGATIVE (NEGATIVE); URINE BENZODIAZEPINES POSITIVE (NEGATIVE)
[2021-02-02 16:46] VITALS: BMI 27.4
[2021-02-02] MEDS: NICOTINE 14 MG/24 HOURS TOPICAL PATCH TD SCH (17:36)
[2021-02-02] MEDS ORDERED: ARIPiprazole 10 MG TABLET PO SCH (22:00)
[2021-02-03] MEDS ORDERED: MELATONIN 5 MG TABLETS PO PRN (00:58)
[2021-02-03] MEDS: LACTATED RINGERS SOLUTION 1,000 ML IV SCH (05:49)
[2021-02-03 08:02] VITALS: TEMP 98.5
[2021-02-03 09:33] LABS: BASO % 0.9 % (0-2.0); EOS % 0.7 % (0-4.5); HEMATOCRIT 40.7 % (32.4-45.2); HEMOGLOBIN 13.9 GM/dL (10.7-15.3); LYMPH % 24.1 % (8-40); MCH 30.2 pg (25.7-33.7); MCHC 34.1 g/dl (32.0-36.0); MEAN CELL VOLUME 88.5 fl (80-96); MONO % 6.5 % (3.8-10.2); NEUT % 67.8 % (42.8-82.8); PLATELET COUNT 352 10^3/uL (134-434); RDW 14.2 % (11.6-15.6); WHITE BLOOD COUNT 9.8 K/mm3 (4.0-10.0)
[2021-02-03 09:55] LABS: CALCIUM 9.1 mg/dL (8.5-10.1)
[2021-02-03 09:56] LABS: MAGNESIUM 2.1 mg/dL (1.8-2.4)
[2021-02-03 09:57] LABS: BLOOD UREA NITROGEN 7.4 mg/dL (7-18); CREATININE 0.5 mg/dL (0.55-1.3)
[2021-02-03 09:58] LABS: ALBUMIN 3.6 g/dl (3.4-5.0)
[2021-02-03 09:59] LABS: BILIRUBIN,TOTAL 0.5 mg/dL (0.2-1); TOT PROT 6.6 g/dl (6.4-8.2)
[2021-02-03] MEDS ORDERED: ENOXAPARIN NA (PORCINE) 40 MG/0.4 ML DISP.SYRIN SQ SCH (10:00)
[2021-02-03] MEDS: FAMOTIDINE 20 MG/50 ML IVPB 20 MG/50 ML MG IVPB SCH (10:12)
[2021-02-03] MEDS: VENLAFAXINE HCL 75 MG TABLET PO SCH (10:15)
[2021-02-03] MEDS: NICOTINE 14 MG/24 HOURS TOPICAL PATCH TD SCH (10:15)
[2021-02-03] MEDS: amLODIPine BESYLATE 10 MG TABLET (FP) PO SCH (10:15)
[2021-02-03 10:40] VITALS: BP 152/84; PULSE 72
== END 2021-02-03 15:45 | disposition home or self-care (01) ==
LOC: JER 06:40 → JERBED 09:57 → INTOOBSV 09:57 → UNDOADMOB 09:57 → JERBED 14:56 → J5S 14:56 → JERBED 02-03 14:34 → J5S 02-03 14:34
PROVIDERS: ADMIT Internal Medicine; ATTEND Internal Medicine
PROC: 3E023GC Introduction of Other Therapeutic Substance into Muscle, Percutaneous Approach (ICD-10-PCS; principal; 2021-02-03)
PROC: 3E033GC Introduction of Other Therapeutic Substance into Peripheral Vein, Percutaneous Approach (ICD-10-PCS; 2021-02-03)
PROC: 3E0337Z Introduction of Electrolytic and Water Balance Substance into Peripheral Vein, Percutaneous Approach (ICD-10-PCS; 2021-02-03)
DX: K85.80 Other acute pancreatitis without necrosis or infection (principal); J45.909 Unspecified asthma, uncomplicated; F31.9 Bipolar disorder, unspecified; I10 Essential (primary) hypertension; R63.0 Anorexia; Z87.891 Personal history of nicotine dependence; R53.1 Weakness
CPT/HCPCS: 36415; 76705-TC; 80053; 80061; 80307; 81003; 83036; 83690; 83735; 84100; 85025; 87040; 87086; 93005; 93010; 96365; 96367; 96372; 99285-25; C9803; G0378; U0003; U0005

== ENCOUNTER 2021-03-26 21:38 | Inpatient (IN) | payer BC, OTHER ==
[2021-03-26 21:46] VITALS: BMI 28.3
[2021-03-26] MEDS ORDERED: SODIUM CHLORIDE 0.9% 500 ML INFUS.BAG IV ONE (22:41)
[2021-03-26 23:12] LABS: HEMATOCRIT 46.2 % (32.4-45.2); HEMOGLOBIN 15.5 GM/dL (10.7-15.3); MCH 29.8 pg (25.7-33.7); MCHC 33.6 g/dl (32.0-36.0); MEAN CELL VOLUME 88.6 fl (80-96); MEAN PLT VOLUME 6.6 fl (7.5-11.1); PLATELET COUNT 424 10^3/uL (134-434); RBC 5.21 M/mm3 (3.60-5.2); RDW 14.2 % (11.6-15.6)
[2021-03-26 23:23] LABS: WHITE BLOOD COUNT 37.9 K/mm3 (4.0-10.0)
[2021-03-26 23:31] LABS: CHLORIDE 100 mmol/L (98-107); SODIUM 136 mmol/L (136-145)
[2021-03-26 23:34] LABS: ALBUMIN 4.2 g/dl (3.4-5.0); ANION GAP 12 MMOL/L (8-16); BLOOD UREA NITROGEN 33.1 mg/dL (7-18); CALCIUM 8.4 mg/dL (8.5-10.1); CO2 24 mmol/L (21-32); GLUCOSE,RANDOM 132 mg/dL (74-106)
[2021-03-26 23:37] LABS: CREATININE 2.3 mg/dL (0.55-1.3); SGOT/AST 503 U/L (15-37); SGPT/ALT 236 U/L (13-61)
[2021-03-26 23:39] LABS: BILIRUBIN,TOTAL 0.3 mg/dL (0.2-1)
[2021-03-26 23:40] LABS: ALK PHOS 122 U/L (45-117)
[2021-03-27] MEDS ORDERED: SODIUM CHLORIDE 0.9% 500 ML INFUS.BAG IV ONE (00:14)
[2021-03-27 01:18] LABS: LIPASE 650 U/L (73-393)
[2021-03-27 01:23] LABS: ANISOCYTOSIS 1+; MACROCYTOSIS 1+; PLATELET ESTIMATE NORMAL
[2021-03-27] MEDS ORDERED: SODIUM CHLORIDE 1,000 ML IV SCH ×3 (05:45→11:00)
[2021-03-27 08:28] LABS: EPI CELLS 7 /uL (0-25.1); HYALINE CASTS 3 /uL (0-3.1); URINE APPEARANCE CLEAR; URINE BACTERIA 18 /uL (0-1359); URINE BILIRUBIN NEGATIVE (NEGATIVE); URINE COLOR YELLOW; URINE GLUCOSE (UA) NEGATIVE (NEGATIVE); URINE KETONE NEGATIVE (NEGATIVE); URINE LEUK ESTERASE NEGATIVE (NEGATIVE); URINE NITRITE NEGATIVE (NEGATIVE); URINE PROTEIN 2+ (NEGATIVE); URINE RBC 78 /uL (0-23.9); URINE UROBILINOGEN 0.2 mg/dL (0.2-1.0); URINE WBC 47 /uL (0-25.8)
[2021-03-27] MEDS ORDERED: MAGNESIUM SULF 50% (8.12 MEQ/2 ML-1 GM VIAL) IVPB ONE (09:25)
[2021-03-27] MEDS ORDERED: PIPERACILLIN/TAZOB 3.375 GM 3.375 GM/50 ML BAG IVPB ONE (09:36)
[2021-03-27] MEDS ORDERED: MAGNESIUM 1GM/D5W - 1 GM/100 ML IVPB IVPB ONE (09:36)
[2021-03-27] MEDS ORDERED: PIPERACILLIN/TAZOB 3.375 GM 3.375 GM in DEXTROSE 5%-WATER - 50 ML IVPB SCH (10:00)
[2021-03-27 10:43] LABS: COCAINE, UR NEGATIVE (NEGATIVE); METHADONE, UR NEGATIVE (NEGATIVE); OPIATES, URI NEGATIVE (NEGATIVE); PHENCYCLIDINE,URINE NEGATIVE (NEGATIVE); URINE AMPHETAMINES NEGATIVE (NEGATIVE); URINE BARBITURATES NEGATIVE (NEGATIVE); URINE BENZODIAZEPINES NEGATIVE (NEGATIVE)
[2021-03-27 11:06] LABS: HEMATOCRIT 39.5 % (32.4-45.2); HEMOGLOBIN 13.2 GM/dL (10.7-15.3); MCH 29.8 pg (25.7-33.7); MCHC 33.4 g/dl (32.0-36.0); MEAN CELL VOLUME 89.3 fl (80-96); MEAN PLT VOLUME 7.2 fl (7.5-11.1); PLATELET COUNT 333 10^3/uL (134-434); RBC 4.42 M/mm3 (3.60-5.2); RDW 14.2 % (11.6-15.6); WHITE BLOOD COUNT 22.8 K/mm3 (4.0-10.0)
[2021-03-27 12:30] LABS: BLOOD UREA NITROGEN 36.3 mg/dL (7-18); CREATININE 1.4 mg/dL (0.55-1.3); GLUCOSE,RANDOM 83 mg/dL (74-106)
[2021-03-27 12:31] LABS: CHLORIDE 104 mmol/L (98-107); CO2 24 mmol/L (21-32); SODIUM 137 mmol/L (136-145)
[2021-03-27 12:32] LABS: ALBUMIN 3.2 g/dl (3.4-5.0); BILIRUBIN,TOTAL 0.3 mg/dL (0.2-1); CALCIUM 7.7 mg/dL (8.5-10.1); CHOLESTEROL 147 mg/dL (50-200); HDL CHOLESTEROL 48 mg/dL (40-60); LDL CHOLESTEROL (ONLY SJRH) 84 mg/dL (5-100); MAGNESIUM 2.3 mg/dL (1.8-2.4); PHOSPHOROUS 5.4 mg/dL (2.5-4.9); SGOT/AST 525 U/L (15-37); SGPT/ALT 209 U/L (13-61); TOT PROT 6.2 g/dl (6.4-8.2); TRIGLYCERIDES 65 mg/dL (0-150)
[2021-03-27 12:33] LABS: ALK PHOS 87 U/L (45-117)
[2021-03-27 16:58] LABS: URIC ACID 8.4 mg/dL (2.6-7.2)
[2021-03-27] MEDS ORDERED: PIPERACILLIN/TAZOBACTAM 3.375 GM VIAL IVPB ONE (19:49)
[2021-03-27] MEDS ORDERED: DEXTROSE 5%-WATER - 50 ML IVPB ONE (19:49)
[2021-03-27] MEDS: PIPERACILLIN/TAZOB 3.375 GM 3.375 GM in DEXTROSE 5%-WATER - 50 ML IVPB SCH (20:00)
[2021-03-27 22:21] LABS: BLOOD UREA NITROGEN 31.7 mg/dL (7-18); CREATININE 1.4 mg/dL (0.55-1.3); GLUCOSE,RANDOM 86 mg/dL (74-106); SODIUM 138 mmol/L (136-145)
[2021-03-27 22:22] LABS: CALCIUM 8.5 mg/dL (8.5-10.1); CHLORIDE 106 mmol/L (98-107); CHOLESTEROL 152 mg/dL (50-200); CO2 26 mmol/L (21-32); TRIGLYCERIDES 85 mg/dL (0-150)
[2021-03-27 22:23] LABS: HDL CHOLESTEROL 49 mg/dL (40-60); LDL CHOLESTEROL (ONLY SJRH) 87 mg/dL (5-100)
[2021-03-27 22:24] LABS: ANION GAP 6 MMOL/L (8-16)
[2021-03-27] MEDS: BENZOCAINE/MENTH/CETYLPYRD CL 1 EACH LOZENGE MM PRN (22:30)
[2021-03-27] MEDS: NICOTINE 14 MG/24 HOURS TOPICAL PATCH TD SCH (22:31)
[2021-03-27] MEDS: SODIUM CHLORIDE 1,000 ML IV SCH (22:34)
[2021-03-28] MEDS ORDERED: PIPERACILLIN/TAZOBACTAM 3.375 GM VIAL IVPB ONE ×3 (00:46→17:00)
[2021-03-28] MEDS ORDERED: DEXTROSE 5%-WATER - 50 ML IVPB ONE ×3 (00:46→17:00)
[2021-03-28] MEDS: PIPERACILLIN/TAZOB 3.375 GM 3.375 GM in DEXTROSE 5%-WATER - 50 ML IVPB SCH ×3 (02:16→18:08)
[2021-03-28 07:49] LABS: WHITE BLOOD COUNT 11.8 K/mm3 (4.0-10.0)
[2021-03-28 07:50] LABS: BASO % 0.2 % (0-2.0); EOS % 0.3 % (0-4.5); HEMATOCRIT 32.7 % (32.4-45.2); HEMOGLOBIN 10.9 GM/dL (10.7-15.3); LYMPH % 8.5 % (8-40); MCH 29.8 pg (25.7-33.7); MCHC 33.4 g/dl (32.0-36.0); MEAN CELL VOLUME 89.1 fl (80-96); MEAN PLT VOLUME 7.4 fl (7.5-11.1); MONO % 10.9 % (3.8-10.2); NEUT % 80.1 % (42.8-82.8); PLATELET COUNT 255 10^3/uL (134-434); RBC 3.66 M/mm3 (3.60-5.2); RDW 14.4 % (11.6-15.6)
[2021-03-28 07:56] LABS: BLOOD UREA NITROGEN 21.4 mg/dL (7-18); CHLORIDE 115 mmol/L (98-107); CO2 23 mmol/L (21-32); CREATININE 0.9 mg/dL (0.55-1.3); GLUCOSE,RANDOM 64 mg/dL (74-106); SODIUM 144 mmol/L (136-145)
[2021-03-28 07:57] LABS: ANION GAP 6 MMOL/L (8-16); CALCIUM 6.8 mg/dL (8.5-10.1); PHOSPHOROUS 2.7 mg/dL (2.5-4.9); URIC ACID 4.6 mg/dL (2.6-7.2)
[2021-03-28 07:58] LABS: ALBUMIN 2.4 g/dl (3.4-5.0); BILIRUBIN,TOTAL 0.3 mg/dL (0.2-1); SGOT/AST 342 U/L (15-37); SGPT/ALT 154 U/L (13-61); TOT PROT 4.9 g/dl (6.4-8.2)
[2021-03-28 08:31] LABS: ALK PHOS 66 U/L (45-117)
[2021-03-28] MEDS ORDERED: POTASSIUM CHLORIDE TABS 10 MEQ TABLET.ER (FP) PO ONE (09:23)
[2021-03-28] MEDS: PANTOPRAZOLE 40 MG TABLET PO SCH ×2 (09:40→21:31)
[2021-03-28] MEDS: NICOTINE 14 MG/24 HOURS TOPICAL PATCH TD SCH (09:41)
[2021-03-28] MEDS: BENZOCAINE/MENTH/CETYLPYRD CL 1 EACH LOZENGE MM PRN (09:41)
[2021-03-29] MEDS ORDERED: PIPERACILLIN/TAZOBACTAM 3.375 GM VIAL IVPB ONE ×3 (00:38→18:25)
[2021-03-29] MEDS ORDERED: DEXTROSE 5%-WATER - 50 ML IVPB ONE ×2 (00:38→18:25)
[2021-03-29] MEDS: PIPERACILLIN/TAZOB 3.375 GM 3.375 GM in DEXTROSE 5%-WATER - 50 ML IVPB SCH ×3 (01:23→18:51)
[2021-03-29 07:57] LABS: BASO % 0.4 % (0-2.0); EOS % 0.2 % (0-4.5); HEMATOCRIT 34.2 % (32.4-45.2); HEMOGLOBIN 11.5 GM/dL (10.7-15.3); LYMPH % 10.9 % (8-40); MCHC 33.7 g/dl (32.0-36.0); MEAN PLT VOLUME 7.3 fl (7.5-11.1); MONO % 9.7 % (3.8-10.2); NEUT % 78.8 % (42.8-82.8); PLATELET COUNT 287 10^3/uL (134-434); RBC 3.85 M/mm3 (3.60-5.2); RDW 14.4 % (11.6-15.6)
[2021-03-29 08:06] LABS: CALCIUM 8.2 mg/dL (8.5-10.1)
[2021-03-29 08:10] LABS: CREATININE 0.7 mg/dL (0.55-1.3)
[2021-03-29 08:11] LABS: BILIRUBIN,TOTAL 0.6 mg/dL (0.2-1)
[2021-03-29 08:24] LABS: ALBUMIN 2.9 g/dl (3.4-5.0); BLOOD UREA NITROGEN 7.5 mg/dL (7-18); TOT PROT 5.8 g/dl (6.4-8.2)
[2021-03-29] MEDS: NICOTINE 14 MG/24 HOURS TOPICAL PATCH TD SCH (09:20)
[2021-03-29] MEDS: PANTOPRAZOLE 40 MG TABLET PO SCH ×2 (09:20→21:36)
[2021-03-29] MEDS: BENZOCAINE/MENTH/CETYLPYRD CL 1 EACH LOZENGE MM PRN (09:27)
[2021-03-29] MEDS: SODIUM CHLORIDE 1,000 ML IV SCH ×2 (18:51)
[2021-03-29] MEDS: VENLAFAXINE HCL 75 MG TABLET PO SCH (22:06)
[2021-03-30] MEDS ORDERED: DEXTROSE 5%-WATER - 50 ML IVPB ONE ×3 (00:51→14:07)
[2021-03-30] MEDS ORDERED: PIPERACILLIN/TAZOBACTAM 3.375 GM VIAL IVPB ONE ×2 (00:51→10:37)
[2021-03-30] MEDS ORDERED: amLODIPine BESYLATE 5 MG TABLET (FP) PO ONE (01:47)
[2021-03-30] MEDS: PIPERACILLIN/TAZOB 3.375 GM 3.375 GM in DEXTROSE 5%-WATER - 50 ML IVPB SCH ×2 (01:59→10:52)
[2021-03-30] MEDS: SODIUM CHLORIDE 1,000 ML IV SCH ×3 (02:45→20:01)
[2021-03-30 10:37] LABS: BASO % 0.6 % (0-2.0); EOS % 0.4 % (0-4.5); HEMATOCRIT 34.9 % (32.4-45.2); HEMOGLOBIN 11.9 GM/dL (10.7-15.3); LYMPH % 16.6 % (8-40); MCH 30.1 pg (25.7-33.7); MCHC 34.2 g/dl (32.0-36.0); MEAN PLT VOLUME 7.3 fl (7.5-11.1); MONO % 7.9 % (3.8-10.2); NEUT % 74.5 % (42.8-82.8); PLATELET COUNT 296 10^3/uL (134-434); RBC 3.96 M/mm3 (3.60-5.2); RDW 14.1 % (11.6-15.6); WHITE BLOOD COUNT 12.5 K/mm3 (4.0-10.0)
[2021-03-30] MEDS: ARIPiprazole 10 MG TABLET PO SCH (10:50)
[2021-03-30] MEDS: VENLAFAXINE HCL 75 MG TABLET PO SCH ×2 (10:50→22:04)
[2021-03-30] MEDS: PANTOPRAZOLE 40 MG TABLET PO SCH ×2 (10:50→22:03)
[2021-03-30] MEDS: BENZOCAINE/MENTH/CETYLPYRD CL 1 EACH LOZENGE MM PRN (10:50)
[2021-03-30] MEDS: ENOXAPARIN NA (PORCINE) 40 MG/0.4 ML DISP.SYRIN SQ SCH (10:51)
[2021-03-30] MEDS: NICOTINE 14 MG/24 HOURS TOPICAL PATCH TD SCH (10:51)
[2021-03-30 10:56] LABS: CREATININE 0.6 mg/dL (0.55-1.3)
[2021-03-30 10:59] LABS: ALBUMIN 2.9 g/dl (3.4-5.0); BLOOD UREA NITROGEN 5.5 mg/dL (7-18); CALCIUM 8.3 mg/dL (8.5-10.1); MAGNESIUM 1.7 mg/dL (1.8-2.4)
[2021-03-30 11:02] LABS: CREATININE 0.6 mg/dL (0.55-1.3); PHOSPHOROUS 2.5 mg/dL (2.5-4.9)
[2021-03-30 11:04] LABS: BILIRUBIN,TOTAL 0.4 mg/dL (0.2-1); TOT PROT 5.9 g/dl (6.4-8.2)
[2021-03-30] MEDS ORDERED: cefTRIAXone SODIUM 1 GM VIAL ONE (14:07)
[2021-03-30] MEDS: CEFTRIAXONE 1 GM in DEXTROSE 5%-WATER - 50 ML IVPB SCH (14:42)
[2021-03-30] MEDS ORDERED: METOCLOPRAMIDE HCL 10 MG TABLET (FP) PO ONE (14:45)
[2021-03-30] MEDS: MELATONIN 5 MG TABLETS PO SCH (22:03)
[2021-03-30] MEDS ORDERED: PT OWN MED DRAWER 7, Y5N ONE (22:36)
[2021-03-31] MEDS: SODIUM CHLORIDE 1,000 ML IV SCH ×2 (04:27→13:00)
[2021-03-31 08:35] LABS: BASO % 0.8 % (0-2.0); EOS % 0.6 % (0-4.5); HEMATOCRIT 33.6 % (32.4-45.2); HEMOGLOBIN 11.4 GM/dL (10.7-15.3); MCH 29.8 pg (25.7-33.7); MCHC 33.9 g/dl (32.0-36.0); MEAN PLT VOLUME 7.4 fl (7.5-11.1); MONO % 10.3 % (3.8-10.2); NEUT % 67.3 % (42.8-82.8); PLATELET COUNT 292 10^3/uL (134-434); RBC 3.82 M/mm3 (3.60-5.2); RDW 14.2 % (11.6-15.6)
[2021-03-31 09:05] LABS: MAGNESIUM 1.4 mg/dL (1.8-2.4)
[2021-03-31 09:07] LABS: BLOOD UREA NITROGEN 4.6 mg/dL (7-18)
[2021-03-31 09:08] LABS: ALBUMIN 2.6 g/dl (3.4-5.0); CREATININE 0.5 mg/dL (0.55-1.3)
[2021-03-31 09:10] LABS: TOT PROT 5.6 g/dl (6.4-8.2)
[2021-03-31 09:11] LABS: BILIRUBIN,DIRECT 0.1 mg/dL (0.0-0.2); PHOSPHOROUS 3.2 mg/dL (2.5-4.9)
[2021-03-31 09:13] LABS: BILIRUBIN,TOTAL 0.3 mg/dL (0.2-1)
[2021-03-31] MEDS ORDERED: PT OWN MED DRAWER 7, Y5N ONE (10:13)
[2021-03-31] MEDS ORDERED: cefTRIAXone SODIUM 1 GM VIAL ONE (10:14)
[2021-03-31] MEDS ORDERED: DEXTROSE 5%-WATER - 50 ML IVPB ONE (10:14)
[2021-03-31] MEDS: amLODIPine BESYLATE 10 MG TABLET (FP) PO SCH (10:25)
[2021-03-31] MEDS: PANTOPRAZOLE 40 MG TABLET PO SCH ×2 (10:25→22:18)
[2021-03-31] MEDS: ARIPiprazole 10 MG TABLET PO SCH (10:25)
[2021-03-31] MEDS: ENOXAPARIN NA (PORCINE) 40 MG/0.4 ML DISP.SYRIN SQ SCH (10:25)
[2021-03-31] MEDS: NICOTINE 14 MG/24 HOURS TOPICAL PATCH TD SCH (10:25)
[2021-03-31] MEDS: CEFTRIAXONE 1 GM in DEXTROSE 5%-WATER - 50 ML IVPB SCH (10:25)
[2021-03-31] MEDS: VENLAFAXINE HCL 75 MG TABLET PO SCH ×2 (10:25→22:18)
[2021-03-31] MEDS ORDERED: MAGNESIUM SULF 50% (8.12 MEQ/2 ML-1 GM VIAL) IVPB ONE (12:17)
[2021-03-31] MEDS ORDERED: METOCLOPRAMIDE HCL 10 MG TABLET (FP) PO ONE (13:23)
[2021-03-31] MEDS ORDERED: ACETAMINOPHEN 1000 MG/100 ML VIAL (NON FORMULARY) IVPB ONE (13:46)
[2021-03-31] MEDS: MELATONIN 5 MG TABLETS PO SCH (22:18)
[2021-04-01] MEDS ORDERED: PT OWN MED DRAWER 7, Y5N ONE ×3 (00:55→20:21)
[2021-04-01] MEDS: SODIUM CHLORIDE 1,000 ML IV SCH ×3 (01:43→21:40)
[2021-04-01] MEDS ORDERED: DEXTROSE 5%-WATER - 50 ML IVPB ONE (10:36)
[2021-04-01] MEDS ORDERED: cefTRIAXone SODIUM 1 GM VIAL ONE (10:36)
[2021-04-01] MEDS: IBUPROFEN 600 MG TABLET (FP) PO PRN ×2 (10:47→20:52)
[2021-04-01] MEDS: amLODIPine BESYLATE 10 MG TABLET (FP) PO SCH (10:49)
[2021-04-01] MEDS: PANTOPRAZOLE 40 MG TABLET PO SCH ×2 (10:49→21:24)
[2021-04-01] MEDS: CEFTRIAXONE 1 GM in DEXTROSE 5%-WATER - 50 ML IVPB SCH (10:49)
[2021-04-01] MEDS: ARIPiprazole 10 MG TABLET PO SCH (10:49)
[2021-04-01] MEDS: ENOXAPARIN NA (PORCINE) 40 MG/0.4 ML DISP.SYRIN SQ SCH (10:49)
[2021-04-01] MEDS: VENLAFAXINE HCL 75 MG TABLET PO SCH ×2 (10:49→21:25)
[2021-04-01] MEDS: NICOTINE 14 MG/24 HOURS TOPICAL PATCH TD SCH (10:49)
[2021-04-01 14:03] LABS: BASO % 0.6 % (0-2.0); EOS % 1.3 % (0-4.5); HEMATOCRIT 34.3 % (32.4-45.2); HEMOGLOBIN 11.6 GM/dL (10.7-15.3); LYMPH % 19.1 % (8-40); MCH 29.6 pg (25.7-33.7); MCHC 33.9 g/dl (32.0-36.0); MEAN CELL VOLUME 87.2 fl (80-96); MEAN PLT VOLUME 7.3 fl (7.5-11.1); MONO % 9.1 % (3.8-10.2); NEUT % 69.9 % (42.8-82.8); PLATELET COUNT 329 10^3/uL (134-434); RBC 3.93 M/mm3 (3.60-5.2); RDW 14.3 % (11.6-15.6); WHITE BLOOD COUNT 14.7 K/mm3 (4.0-10.0)
[2021-04-01 14:17] LABS: ALBUMIN 2.7 g/dl (3.4-5.0); MAGNESIUM 1.6 mg/dL (1.8-2.4)
[2021-04-01 14:20] LABS: CREATININE 0.4 mg/dL (0.55-1.3); PHOSPHOROUS 3.3 mg/dL (2.5-4.9)
[2021-04-01 14:21] LABS: BILIRUBIN,TOTAL 0.8 mg/dL (0.2-1); TOT PROT 5.7 g/dl (6.4-8.2)
[2021-04-01 14:35] LABS: BLOOD UREA NITROGEN 3.4 mg/dL (7-18)
[2021-04-01] MEDS ORDERED: POTASSIUM CHLORIDE ORAL LIQUID 20 MEQ/15 ML PO ONE (15:46)
[2021-04-01] MEDS: MELATONIN 5 MG TABLETS PO SCH (21:24)
[2021-04-01] MEDS ORDERED: ALPRAZolam 1 MG TABLET PO ONE (22:00)
[2021-04-02 08:13] LABS: BASO % 0.5 % (0-2.0); EOS % 0.9 % (0-4.5); HEMATOCRIT 33.8 % (32.4-45.2); HEMOGLOBIN 11.5 GM/dL (10.7-15.3); LYMPH % 18.4 % (8-40); MCH 29.8 pg (25.7-33.7); MCHC 33.9 g/dl (32.0-36.0); MEAN CELL VOLUME 87.7 fl (80-96); MEAN PLT VOLUME 7.3 fl (7.5-11.1); NEUT % 71.2 % (42.8-82.8); PLATELET COUNT 325 10^3/uL (134-434); RBC 3.85 M/mm3 (3.60-5.2); RDW 14.2 % (11.6-15.6); WHITE BLOOD COUNT 12.6 K/mm3 (4.0-10.0)
[2021-04-02 08:46] LABS: CALCIUM 8.2 mg/dL (8.5-10.1)
[2021-04-02 08:47] LABS: ALBUMIN 2.4 g/dl (3.4-5.0); BLOOD UREA NITROGEN 5.2 mg/dL (7-18); MAGNESIUM 1.7 mg/dL (1.8-2.4)
[2021-04-02 08:50] LABS: CREATININE 0.4 mg/dL (0.55-1.3); PHOSPHOROUS 3.2 mg/dL (2.5-4.9)
[2021-04-02 08:51] LABS: BILIRUBIN,TOTAL 0.3 mg/dL (0.2-1); TOT PROT 5.3 g/dl (6.4-8.2)
[2021-04-02] MEDS ORDERED: PT OWN MED DRAWER 7, Y5N ONE ×2 (09:40→21:25)
[2021-04-02] MEDS: SODIUM CHLORIDE 1,000 ML IV SCH ×3 (10:20→18:52)
[2021-04-02] MEDS: PANTOPRAZOLE 40 MG TABLET PO SCH ×2 (10:21→21:30)
[2021-04-02] MEDS: ARIPiprazole 10 MG TABLET PO SCH (10:21)
[2021-04-02] MEDS: amLODIPine BESYLATE 10 MG TABLET (FP) PO SCH (10:21)
[2021-04-02] MEDS: VENLAFAXINE HCL 75 MG TABLET PO SCH ×2 (10:21→21:29)
[2021-04-02] MEDS: ENOXAPARIN NA (PORCINE) 40 MG/0.4 ML DISP.SYRIN SQ SCH (10:22)
[2021-04-02] MEDS: NICOTINE 14 MG/24 HOURS TOPICAL PATCH TD SCH (10:22)
[2021-04-02] MEDS: MULTIVITAMINS (DAILY MVI) TABLET (FP) PO SCH (14:18)
[2021-04-02] MEDS: IBUPROFEN 600 MG TABLET (FP) PO PRN ×2 (14:18→21:29)
[2021-04-02] MEDS: ALPRAZolam 0.25 MG TABLET PO PRN (21:30)
[2021-04-02] MEDS: MELATONIN 5 MG TABLETS PO SCH (21:30)
[2021-04-03] MEDS: SODIUM CHLORIDE 1,000 ML IV SCH ×3 (04:41→18:41)
[2021-04-03] MEDS ORDERED: PT OWN MED DRAWER 7, Y5N ONE ×2 (09:46→21:06)
[2021-04-03] MEDS: MULTIVITAMINS (DAILY MVI) TABLET (FP) PO SCH (10:08)
[2021-04-03] MEDS: PANTOPRAZOLE 40 MG TABLET PO SCH ×2 (10:08→21:13)
[2021-04-03] MEDS: IBUPROFEN 600 MG TABLET (FP) PO PRN ×2 (10:08→21:12)
[2021-04-03] MEDS: ARIPiprazole 10 MG TABLET PO SCH (10:08)
[2021-04-03] MEDS: NICOTINE 14 MG/24 HOURS TOPICAL PATCH TD SCH (10:09)
[2021-04-03] MEDS: ENOXAPARIN NA (PORCINE) 40 MG/0.4 ML DISP.SYRIN SQ SCH (10:09)
[2021-04-03] MEDS: amLODIPine BESYLATE 10 MG TABLET (FP) PO SCH (10:09)
[2021-04-03] MEDS: VENLAFAXINE HCL 75 MG TABLET PO SCH ×2 (10:09→22:11)
[2021-04-03 12:31] LABS: BASO % 0.5 % (0-2.0); EOS % 1.3 % (0-4.5); HEMATOCRIT 35.4 % (32.4-45.2); HEMOGLOBIN 11.8 GM/dL (10.7-15.3); LYMPH % 17.9 % (8-40); MCH 29.8 pg (25.7-33.7); MCHC 33.4 g/dl (32.0-36.0); MEAN CELL VOLUME 89.4 fl (80-96); MEAN PLT VOLUME 7.4 fl (7.5-11.1); MONO % 9.2 % (3.8-10.2); NEUT % 71.1 % (42.8-82.8); PLATELET COUNT 345 10^3/uL (134-434); RBC 3.96 M/mm3 (3.60-5.2); RDW 14.7 % (11.6-15.6)
[2021-04-03 12:57] LABS: CALCIUM 8.4 mg/dL (8.5-10.1)
[2021-04-03 12:58] LABS: BLOOD UREA NITROGEN 5.6 mg/dL (7-18); MAGNESIUM 1.7 mg/dL (1.8-2.4)
[2021-04-03 13:01] LABS: CREATININE 0.5 mg/dL (0.55-1.3); PHOSPHOROUS 2.8 mg/dL (2.5-4.9)
[2021-04-03 13:02] LABS: BILIRUBIN,TOTAL 0.4 mg/dL (0.2-1); TOT PROT 6.1 g/dl (6.4-8.2)
[2021-04-03 13:24] LABS: ALBUMIN 2.9 g/dl (3.4-5.0)
[2021-04-03] MEDS: ALPRAZolam 0.25 MG TABLET PO PRN (22:11)
[2021-04-03] MEDS: MELATONIN 5 MG TABLETS PO SCH (22:11)
[2021-04-04] MEDS: SODIUM CHLORIDE 1,000 ML IV SCH ×2 (05:09→12:50)
[2021-04-04 09:26] LABS: EOS % 1.6 % (0-4.5); HEMOGLOBIN 12.2 GM/dL (10.7-15.3); MCH 30.5 pg (25.7-33.7); MEAN CELL VOLUME 89.7 fl (80-96); MEAN PLT VOLUME 7.3 fl (7.5-11.1); MONO % 7.6 % (3.8-10.2); NEUT % 66.8 % (42.8-82.8); PLATELET COUNT 405 10^3/uL (134-434); RBC 4.01 M/mm3 (3.60-5.2); RDW 14.6 % (11.6-15.6); WHITE BLOOD COUNT 10.9 K/mm3 (4.0-10.0)
[2021-04-04 09:47] LABS: BLOOD UREA NITROGEN 7.2 mg/dL (7-18)
[2021-04-04 09:48] LABS: ALBUMIN 2.8 g/dl (3.4-5.0); CALCIUM 8.3 mg/dL (8.5-10.1)
[2021-04-04 09:52] LABS: CREATININE 0.5 mg/dL (0.55-1.3)
[2021-04-04 09:53] LABS: BILIRUBIN,TOTAL 0.4 mg/dL (0.2-1)
[2021-04-04] MEDS: MULTIVITAMINS (DAILY MVI) TABLET (FP) PO SCH (09:59)
[2021-04-04] MEDS: NICOTINE 14 MG/24 HOURS TOPICAL PATCH TD SCH (09:59)
[2021-04-04] MEDS: PANTOPRAZOLE 40 MG TABLET PO SCH ×2 (09:59→21:18)
[2021-04-04] MEDS: ENOXAPARIN NA (PORCINE) 40 MG/0.4 ML DISP.SYRIN SQ SCH (09:59)
[2021-04-04] MEDS: amLODIPine BESYLATE 10 MG TABLET (FP) PO SCH (09:59)
[2021-04-04] MEDS: ARIPiprazole 10 MG TABLET PO SCH (09:59)
[2021-04-04] MEDS: VENLAFAXINE HCL 75 MG TABLET PO SCH ×2 (10:00→21:17)
[2021-04-04] MEDS: BENZOCAINE/MENTH/CETYLPYRD CL 1 EACH LOZENGE MM PRN (11:31)
[2021-04-04] MEDS: IBUPROFEN 600 MG TABLET (FP) PO PRN (22:34)
[2021-04-04] MEDS: ALPRAZolam 1 MG TABLET PO PRN (22:35)
[2021-04-04] MEDS: MELATONIN 5 MG TABLETS PO SCH (22:35)
[2021-04-05] MEDS ORDERED: PT OWN MED DRAWER 7, Y5N ONE ×3 (06:03→14:11)
[2021-04-05] MEDS: BENZOCAINE/MENTH/CETYLPYRD CL 1 EACH LOZENGE MM PRN ×2 (06:05→22:38)
[2021-04-05 09:06] LABS: BASO % 1.2 % (0-2.0); EOS % 1.9 % (0-4.5); HEMATOCRIT 34.3 % (32.4-45.2); HEMOGLOBIN 11.7 GM/dL (10.7-15.3); LYMPH % 26.3 % (8-40); MCH 30.5 pg (25.7-33.7); MCHC 34.2 g/dl (32.0-36.0); MEAN CELL VOLUME 89.2 fl (80-96); MEAN PLT VOLUME 7.3 fl (7.5-11.1); MONO % 7.3 % (3.8-10.2); NEUT % 63.3 % (42.8-82.8); PLATELET COUNT 404 10^3/uL (134-434); RBC 3.85 M/mm3 (3.60-5.2); RDW 14.6 % (11.6-15.6); WHITE BLOOD COUNT 10.8 K/mm3 (4.0-10.0)
[2021-04-05 09:08] LABS: INR 0.89 (0.83-1.09); PROTHROMBIN TIME (PATIENT) 10.9 SEC (9.7-13.0)
[2021-04-05 09:38] LABS: ALBUMIN 2.6 g/dl (3.4-5.0); CALCIUM 8.2 mg/dL (8.5-10.1)
[2021-04-05 09:39] LABS: BLOOD UREA NITROGEN 9.3 mg/dL (7-18)
[2021-04-05 09:42] LABS: CREATININE 0.5 mg/dL (0.55-1.3)
[2021-04-05 09:43] LABS: BILIRUBIN,TOTAL 0.4 mg/dL (0.2-1); TOT PROT 5.9 g/dl (6.4-8.2)
[2021-04-05] MEDS: ARIPiprazole 10 MG TABLET PO SCH (10:10)
[2021-04-05] MEDS: PANTOPRAZOLE 40 MG TABLET PO SCH ×2 (10:10→21:01)
[2021-04-05] MEDS: VENLAFAXINE HCL 75 MG TABLET PO SCH ×2 (10:11→21:01)
[2021-04-05] MEDS: ENOXAPARIN NA (PORCINE) 40 MG/0.4 ML DISP.SYRIN SQ SCH (10:11)
[2021-04-05] MEDS: amLODIPine BESYLATE 10 MG TABLET (FP) PO SCH (10:11)
[2021-04-05] MEDS: MULTIVITAMINS (DAILY MVI) TABLET (FP) PO SCH (10:11)
[2021-04-05] MEDS: NICOTINE 14 MG/24 HOURS TOPICAL PATCH TD SCH (10:11)
[2021-04-05] MEDS: IBUPROFEN 600 MG TABLET (FP) PO PRN (21:00)
[2021-04-05] MEDS: ALPRAZolam 1 MG TABLET PO PRN (23:29)
[2021-04-05] MEDS: MELATONIN 5 MG TABLETS PO SCH (23:29)
[2021-04-06 08:47] VITALS: BP 132/82; PULSE 80; TEMP 98.9
[2021-04-06 09:56] LABS: BASO % 0.9 % (0-2.0); EOS % 1.3 % (0-4.5); HEMATOCRIT 34.8 % (32.4-45.2); HEMOGLOBIN 11.8 GM/dL (10.7-15.3); LYMPH % 25.1 % (8-40); MCH 30.2 pg (25.7-33.7); MEAN CELL VOLUME 88.7 fl (80-96); MEAN PLT VOLUME 6.7 fl (7.5-11.1); MONO % 8.2 % (3.8-10.2); NEUT % 64.5 % (42.8-82.8); PLATELET COUNT 442 10^3/uL (134-434); RBC 3.92 M/mm3 (3.60-5.2); RDW 14.9 % (11.6-15.6); WHITE BLOOD COUNT 10.7 K/mm3 (4.0-10.0)
[2021-04-06 10:09] LABS: CALCIUM 8.6 mg/dL (8.5-10.1)
[2021-04-06 10:10] LABS: ALBUMIN 2.8 g/dl (3.4-5.0); BLOOD UREA NITROGEN 10.8 mg/dL (7-18)
[2021-04-06 10:12] LABS: MAGNESIUM 1.8 mg/dL (1.8-2.4); PHOSPHOROUS 3.4 mg/dL (2.5-4.9)
[2021-04-06 10:12] LABS: SARS-CoV-2 NAA Not Detected (Not Detected)
[2021-04-06 10:13] LABS: CREATININE 0.6 mg/dL (0.55-1.3)
[2021-04-06 10:14] LABS: TOT PROT 6.2 g/dl (6.4-8.2)
[2021-04-06 10:21] LABS: BILIRUBIN,TOTAL 0.2 mg/dL (0.2-1)
[2021-04-06] MEDS: ARIPiprazole 10 MG TABLET PO SCH (12:14)
[2021-04-06] MEDS: VENLAFAXINE HCL 75 MG TABLET PO SCH (12:15)
[2021-04-06] MEDS: MULTIVITAMINS (DAILY MVI) TABLET (FP) PO SCH (12:15)
[2021-04-06] MEDS: NICOTINE 14 MG/24 HOURS TOPICAL PATCH TD SCH (12:15)
[2021-04-06] MEDS: amLODIPine BESYLATE 10 MG TABLET (FP) PO SCH (12:15)
[2021-04-06] MEDS: PANTOPRAZOLE 40 MG TABLET PO SCH (12:15)
== END 2021-04-06 11:36 | disposition short-term general hospital (02) | DRG 683 ==
LOC: JER 21:38 → JERBED 03-27 01:41 → J4W 03-27 19:43 → J5S 03-29 15:05
PROVIDERS: ADMIT Internal Medicine
DX: N17.9 Acute kidney failure, unspecified (principal); M62.82 Rhabdomyolysis; K92.2 Gastrointestinal hemorrhage, unspecified; N39.0 Urinary tract infection, site not specified; Q44.4 Choledochal cyst; A09 Infectious gastroenteritis and colitis, unspecified; I10 Essential (primary) hypertension; E78.5 Hyperlipidemia, unspecified; K76.0 Fatty (change of) liver, not elsewhere classified; D64.9 Anemia, unspecified; D72.829 Elevated white blood cell count, unspecified; E86.0 Dehydration; F41.8 Other specified anxiety disorders; F31.9 Bipolar disorder, unspecified; R16.0 Hepatomegaly, not elsewhere classified; F25.9 Schizoaffective disorder, unspecified; R74.01 Elevation of levels of liver transaminase levels; F90.9 Attention-deficit hyperactivity disorder, unspecified type; E66.9 Obesity, unspecified; Z68.28 Body mass index [BMI] 28.0-28.9, adult; R94.31 Abnormal electrocardiogram [ECG] [EKG]; F17.200 Nicotine dependence, unspecified, uncomplicated; T43.211A Poisoning by selective serotonin and norepinephrine reuptake inhibitors, accidental (unintentional), initial encounter; B96.1 Klebsiella pneumoniae [K. pneumoniae] as the cause of diseases classified elsewhere; R20.2 Paresthesia of skin; F41.9 Anxiety disorder, unspecified; K80.50 Calculus of bile duct without cholangitis or cholecystitis without obstruction
CPT/HCPCS: 36415; 70450-TC; 71045-TC-FY; 71250-TC; 73502-TC-RT-FY; 74176-TC; 74181-TC; 76705-TC; 80048; 80053; 80061; 80076; 80307; 81003; 82103; 82105; 82150; 82272; 82550; 82553; 82565; 83516; 83605; 83690; 83735; 84100; 84484; 84550; 85025; 85027; 85610; 86038; 86140; 86301; 86705; 86706; 86708; 86803; 86850; 86900; 86901; 87040; 87045; 87046; 87086; 87186; 87205; 87324; 87340; 87449; 87517; 87899; 93005; 93010; 97116-GP; 99285-25; C9803; J0131; U0003; U0005

== ENCOUNTER 2021-04-13 12:47 | Inpatient (IN) | payer BC ==
[2021-04-13 14:54] LABS: HEMATOCRIT 37.3 % (32.4-45.2); HEMOGLOBIN 12.2 GM/dL (10.7-15.3); MCH 29.9 pg (25.7-33.7); MCHC 32.6 g/dl (32.0-36.0); MEAN CELL VOLUME 91.7 fl (80-96); MEAN PLT VOLUME 6.9 fl (7.5-11.1); PLATELET COUNT 553 10^3/uL (134-434); RBC 4.07 M/mm3 (3.60-5.2); RDW 14.8 % (11.6-15.6)
[2021-04-13 15:05] LABS: ADD RBC MORPHOLOGY YES
[2021-04-13 15:06] LABS: VENOUS BASE EXCESS -8.9 mmol/L (-2-2); VENOUS O2 SATURATION 81.7 % (70-80); VENOUS PCO2 65.3 mmHg (38-52)
[2021-04-13 15:08] LABS: VENOUS PH 7.13 (7.310-7.410)
[2021-04-13 15:14] LABS: CHLORIDE 101 mmol/L (98-107); SODIUM 136 mmol/L (136-145)
[2021-04-13 15:18] LABS: ANION GAP 16 MMOL/L (8-16); CALCIUM 8.7 mg/dL (8.5-10.1); CO2 19 mmol/L (21-32)
[2021-04-13 15:19] LABS: BLOOD UREA NITROGEN 34.2 mg/dL (7-18); GLUCOSE,RANDOM 144 mg/dL (74-106)
[2021-04-13 15:22] LABS: CREATININE 2.2 mg/dL (0.55-1.3); SGOT/AST 564 U/L (15-37); SGPT/ALT 471 U/L (13-61)
[2021-04-13] MEDS ORDERED: SODIUM CHLORIDE 0.9% 500 ML INFUS.BAG IV ONE (15:22)
[2021-04-13 15:23] LABS: BILIRUBIN,TOTAL 0.3 mg/dL (0.2-1); TOT PROT 7.7 g/dl (6.4-8.2)
[2021-04-13 15:24] LABS: ALK PHOS 143 U/L (45-117)
[2021-04-13 15:32] LABS: ANISOCYTOSIS 0; HELMET CELLS 0; HOWELL-JOLLY BODIES 0; MACROCYTOSIS 0; OVALOCYTE 0; PLATELET ESTIMATE INCREASED; ROULEAU 0; SICKELED CELLS 0; TARGET CELLS 0; TEAR DROP CELLS 0; TOXIC GRANULATION 0
[2021-04-13] MEDS ORDERED: FUROSEMIDE 40 MG/4 ML INJECTABLE VIAL IVPUSH ONE (16:13)
[2021-04-13 17:40] LABS: COCAINE, UR NEGATIVE (NEGATIVE); URINE AMPHETAMINES NEGATIVE (NEGATIVE); URINE BARBITURATES NEGATIVE (NEGATIVE); URINE BENZODIAZEPINES NEGATIVE (NEGATIVE)
[2021-04-13 17:41] LABS: METHADONE, UR NEGATIVE (NEGATIVE); OPIATES, URI NEGATIVE (NEGATIVE); PHENCYCLIDINE,URINE NEGATIVE (NEGATIVE)
[2021-04-13 19:21] LABS: EPI CELLS 27 /uL (0-25.1); HYALINE CASTS 16 /uL (0-3.1); URINE APPEARANCE CLOUDY; URINE BACTERIA 82 /uL (0-1359); URINE BILIRUBIN NEGATIVE (NEGATIVE); URINE COLOR YELLOW; URINE GLUCOSE (UA) NEGATIVE (NEGATIVE); URINE KETONE NEGATIVE (NEGATIVE); URINE LEUK ESTERASE NEGATIVE (NEGATIVE); URINE NITRITE NEGATIVE (NEGATIVE); URINE PROTEIN 1+ (NEGATIVE); URINE RBC 16 /uL (0-23.9); URINE UROBILINOGEN 0.2 mg/dL (0.2-1.0); URINE WBC 13 /uL (0-25.8)
[2021-04-13] MEDS ORDERED: PIPERACILLIN/TAZOB 4.5 GM 3.375 GM in DEXTROSE 5%-WATER 100 ML IVPB SCH (21:00)
[2021-04-13] MEDS ORDERED: HEPARIN NA (PORCINE) 5,000 UNITS/ML 1ML VIAL ONE (21:58)
[2021-04-13] MEDS ORDERED: PIPERACILLIN/TAZOB 3.375 GM 3.375 GM/50 ML BAG IVPB ONE (21:59)
[2021-04-13] MEDS: LACTATED RINGERS SOLUTION 1,000 ML/1,000 ML INFUS.BAG IV SCH (22:05)
[2021-04-13] MEDS: HEPARIN NA (PORCINE) 5,000 UNITS/ML 1ML VIAL SQ SCH (22:28)
[2021-04-13 23:08] LABS: VENOUS BASE EXCESS -1.3 mmol/L (-2-2); VENOUS O2 SATURATION 41.4 % (70-80); VENOUS PCO2 53.8 mmHg (38-52); VENOUS PH 7.298 (7.310-7.410)
[2021-04-14 01:57] VITALS: BMI 27.8
[2021-04-14] MEDS ORDERED: PIPERACILLIN/TAZOB 4.5 GM 4.5 GM in DEXTROSE 5%-WATER 100 ML IVPB SCH (02:03)
[2021-04-14] MEDS ORDERED: PIPERACILLIN/TAZOB 3.375 GM 3.375 GM in DEXTROSE 5%-WATER 100 ML IVPB SCH (02:03)
[2021-04-14] MEDS ORDERED: DEXTROSE 5%-WATER 100 ML IVPB ONE ×2 (02:16→10:32)
[2021-04-14] MEDS ORDERED: PIPERACILLIN/TAZOBACTAM 3.375 GM VIAL IVPB ONE ×2 (02:16→10:32)
[2021-04-14] MEDS: PIPERACILLIN/TAZOB 3.375 GM 3.375 GM in DEXTROSE 5%-WATER 100 ML IVPB SCH ×2 (02:28→10:54)
[2021-04-14] MEDS ORDERED: LORazepam 2 MG/ML SDV VIAL IVPUSH ONE (02:52)
[2021-04-14] MEDS: HEPARIN NA (PORCINE) 5,000 UNITS/ML 1ML VIAL SQ SCH ×3 (06:06→22:24)
[2021-04-14] MEDS: LACTATED RINGERS SOLUTION 1,000 ML/1,000 ML INFUS.BAG IV SCH (06:40)
[2021-04-14 08:25] LABS: INR 1.13 (0.83-1.09); PROTHROMBIN TIME (PATIENT) 13.2 SEC (9.7-13.0)
[2021-04-14 08:34] LABS: HEMATOCRIT 30.8 % (32.4-45.2); HEMOGLOBIN 10.4 GM/dL (10.7-15.3); MCH 30.3 pg (25.7-33.7); MCHC 33.6 g/dl (32.0-36.0); MEAN PLT VOLUME 6.8 fl (7.5-11.1); PLATELET COUNT 461 10^3/uL (134-434); RBC 3.42 M/mm3 (3.60-5.2); RDW 14.4 % (11.6-15.6); WHITE BLOOD COUNT 11.9 K/mm3 (4.0-10.0)
[2021-04-14 08:41] LABS: BLOOD UREA NITROGEN 16.8 mg/dL (7-18); CALCIUM 8.7 mg/dL (8.5-10.1)
[2021-04-14 08:45] LABS: CREATININE 0.7 mg/dL (0.55-1.3)
[2021-04-14 08:46] LABS: BILIRUBIN,TOTAL 1.8 mg/dL (0.2-1); TOT PROT 6.1 g/dl (6.4-8.2)
[2021-04-14 09:44] LABS: ANISOCYTOSIS 0; MACROCYTOSIS 0; PLATELET ESTIMATE NORMAL
[2021-04-14] MEDS ORDERED: ONDANSETRON 4 MG/2 ML VIAL IVPUSH ONE (18:45)
[2021-04-14] MEDS: VENLAFAXINE HCL 75 MG TABLET PO SCH (22:23)
[2021-04-15] MEDS: LACTATED RINGERS SOLUTION 1,000 ML/1,000 ML INFUS.BAG IV SCH ×2 (03:28→21:36)
[2021-04-15] MEDS: HEPARIN NA (PORCINE) 5,000 UNITS/ML 1ML VIAL SQ SCH ×3 (05:53→22:49)
[2021-04-15 07:56] LABS: ALBUMIN 2.9 g/dl (3.4-5.0); BLOOD UREA NITROGEN 6.3 mg/dL (7-18); CALCIUM 8.2 mg/dL (8.5-10.1); MAGNESIUM 1.9 mg/dL (1.8-2.4)
[2021-04-15 07:59] LABS: CREATININE 0.6 mg/dL (0.55-1.3)
[2021-04-15 08:00] LABS: BILIRUBIN,TOTAL 0.4 mg/dL (0.2-1); TOT PROT 5.6 g/dl (6.4-8.2)
[2021-04-15 08:04] LABS: BASO % 1.1 % (0-2.0); EOS % 2.3 % (0-4.5); HEMOGLOBIN 10.1 GM/dL (10.7-15.3); LYMPH % 29.3 % (8-40); MCH 30.6 pg (25.7-33.7); MCHC 33.8 g/dl (32.0-36.0); MEAN CELL VOLUME 90.7 fl (80-96); MEAN PLT VOLUME 7.4 fl (7.5-11.1); MONO % 10.8 % (3.8-10.2); NEUT % 56.5 % (42.8-82.8); PLATELET COUNT 401 10^3/uL (134-434); RDW 14.5 % (11.6-15.6); WHITE BLOOD COUNT 5.8 K/mm3 (4.0-10.0)
[2021-04-15] MEDS ORDERED: PT OWN MED DRAWER 7, Y5N ONE ×2 (09:35→10:46)
[2021-04-15] MEDS: ARIPiprazole 20 MG TABLET PO SCH (09:43)
[2021-04-15] MEDS: VENLAFAXINE HCL 75 MG TABLET PO SCH ×2 (09:43→22:49)
[2021-04-15] MEDS ORDERED: SODIUM PHOSPHATE - 15 MM in DEXTROSE 5%-WATER - 250 ML IVPB ONE (10:30)
[2021-04-15] MEDS: NICOTINE 21 MG/24 HOURS TOPICAL PATCH TD SCH (10:48)
[2021-04-16] MEDS ORDERED: MELATONIN 5 MG TABLETS PO ONE (00:34)
[2021-04-16] MEDS: HEPARIN NA (PORCINE) 5,000 UNITS/ML 1ML VIAL SQ SCH ×2 (05:38→13:33)
[2021-04-16 07:05] LABS: BASO % 1.2 % (0-2.0); EOS % 1.2 % (0-4.5); HEMATOCRIT 33.7 % (32.4-45.2); HEMOGLOBIN 11.4 GM/dL (10.7-15.3); LYMPH % 21.2 % (8-40); MCH 30.4 pg (25.7-33.7); MCHC 33.8 g/dl (32.0-36.0); MEAN CELL VOLUME 89.8 fl (80-96); MEAN PLT VOLUME 7.6 fl (7.5-11.1); MONO % 6.9 % (3.8-10.2); NEUT % 69.5 % (42.8-82.8); PLATELET COUNT 430 10^3/uL (134-434); RBC 3.75 M/mm3 (3.60-5.2); RDW 14.5 % (11.6-15.6)
[2021-04-16 07:35] LABS: ALBUMIN 3.1 g/dl (3.4-5.0); CALCIUM 9.2 mg/dL (8.5-10.1)
[2021-04-16 07:36] LABS: BLOOD UREA NITROGEN 3.4 mg/dL (7-18); MAGNESIUM 1.7 mg/dL (1.8-2.4)
[2021-04-16 07:39] LABS: CREATININE 0.5 mg/dL (0.55-1.3); PHOSPHOROUS 2.8 mg/dL (2.5-4.9)
[2021-04-16 07:40] LABS: BILIRUBIN,TOTAL 0.3 mg/dL (0.2-1); TOT PROT 6.5 g/dl (6.4-8.2)
[2021-04-16] MEDS ORDERED: ONDANSETRON 4 MG/2 ML VIAL IVPUSH ONE (08:00)
[2021-04-16] MEDS ORDERED: PT OWN MED DRAWER 7, Y5N ONE (09:04)
[2021-04-16] MEDS: ARIPiprazole 20 MG TABLET PO SCH (09:08)
[2021-04-16] MEDS: VENLAFAXINE HCL 75 MG TABLET PO SCH (09:08)
[2021-04-16] MEDS: NICOTINE 21 MG/24 HOURS TOPICAL PATCH TD SCH (09:09)
[2021-04-16] MEDS ORDERED: MAGNESIUM SULF 50% (8.12 MEQ/2 ML-1 GM VIAL) IVPB ONE (09:35)
[2021-04-16 13:36] VITALS: BP 146/75; PULSE 66; TEMP 98.9
== END 2021-04-16 18:09 | disposition home or self-care (01) | DRG 918 ==
LOC: JER 12:47 → JERBED 17:51 → J4S 04-14 00:11
PROVIDERS: ATTEND Student in an Organized Health Care Education/Training Program
DX: T46.1X1A Poisoning by calcium-channel blockers, accidental (unintentional), initial encounter (principal); I24.8 Other forms of acute ischemic heart disease; Y92.098 Other place in other non-institutional residence as the place of occurrence of the external cause; N17.9 Acute kidney failure, unspecified; M62.82 Rhabdomyolysis; Q44.4 Choledochal cyst; E87.2 Acidosis; T43.621A Poisoning by amphetamines, accidental (unintentional), initial encounter; I10 Essential (primary) hypertension; F25.9 Schizoaffective disorder, unspecified; T43.211A Poisoning by selective serotonin and norepinephrine reuptake inhibitors, accidental (unintentional), initial encounter; R40.4 Transient alteration of awareness; I12.9 Hypertensive chronic kidney disease with stage 1 through stage 4 chronic kidney disease, or unspecified chronic kidney disease; N18.9 Chronic kidney disease, unspecified; F17.200 Nicotine dependence, unspecified, uncomplicated; G93.2 Benign intracranial hypertension; E78.5 Hyperlipidemia, unspecified; F41.8 Other specified anxiety disorders; F98.8 Other specified behavioral and emotional disorders with onset usually occurring in childhood and adolescence; R94.5 Abnormal results of liver function studies
CPT/HCPCS: 36415; 70450-TC; 71045-TC-FY; 72125-TC; 76705-TC; 78452-TC; 80053; 80307; 81003; 82550; 82553; 82803; 82962; 83605; 83735; 83930; 84100; 84484; 85025; 85610; 87040; 93005; 93010; 93017; 93306-TC; 99285-25; A9502; C9803; J1644; U0003; U0005

== ENCOUNTER 2021-12-24 13:22 | Emergency (ER) | payer BC, OTHER ==
[2021-12-24] MEDS ORDERED: LORazepam 2 MG/ML SDV VIAL IVPUSH ONE (13:29)
[2021-12-24] MEDS ORDERED: EPINEPHrine 1:10,000 (P-F SYR) 1 MG/10 ML DISP.SYRIN ONE (13:34)
[2021-12-24] MEDS ORDERED: CALCIUM CHLORIDE 1 GM/10 ML *DISP.SYRIN ONE (13:34)
== END 2021-12-24 15:10 | disposition expired ==
LOC: JER 13:22
PROC: 3E033NZ Introduction of Analgesics, Hypnotics, Sedatives into Peripheral Vein, Percutaneous Approach (ICD-10-PCS; principal; 2021-12-24)
DX: I46.9 Cardiac arrest, cause unspecified (principal); R50.9 Fever, unspecified
CPT/HCPCS: 99283-25